=== PATIENT | female | born 1975 | race Caucasian/White ===

== ENCOUNTER 2020-11-28 13:36 | Outpatient (CLI) | payer OTHER, SELFPAY ==
[2020-11-28 13:55] LABS: Hemoglobin A1C 6.5 % (<5.7)
== END 2020-11-28 13:37 | disposition home or self-care (01) ==
LOC: CHSLAB 13:38
PROVIDERS: PCP Family Medicine; Visit Provider Family Medicine
DX: R73.09 Other abnormal glucose (principal)
CPT/HCPCS: 36415; 83036

== ENCOUNTER 2021-08-03 11:32 | Outpatient (NON) | payer OTHER, SELFPAY ==
[2021-08-03 11:51] LABS: Appearance Urine Clear (Clear); Bilirubin Urine Negative (Negative); Blood Urine 2+ (Negative); Glucose Urine UA 1+ (Negative); Ketones Urine Trace (Negative); Leukocyte Esterase Ur 2+ (Negative); Nitrate Urine Positive (Negative); Protein Urine 2+ (Negative); Specific Grav Ur 1.025 (1.010-1.020)
[2021-08-03 12:02] LABS: Add Urine Microscopic? YES; Color Urine Orange (Yellow)
[2021-08-03 12:03] LABS: Squamous Epithelial Cell Urine Few /hpf (Few); WBC Urine 16-20 /hpf (0-3)
[2021-08-03 12:04] LABS: Bacteria Urine 1+ /hpf
== END 2021-08-03 11:33 | disposition home or self-care (01) ==
LOC: CHSLAB 11:34
PROVIDERS: Visit Provider Nurse Practitioner Family
DX: N39.0 Urinary tract infection, site not specified (principal)
CPT/HCPCS: 81001; 87086; 87186

== ENCOUNTER 2021-09-30 11:03 | Outpatient (CLI) | payer OTHER, SELFPAY ==
--- NOTE | ~2021-09-30 | XR_ITS ---
EXAMINATION: XR chest 2V 09/30/2021 11:27 INDICATION: Wheezing and cough for 3 days PROCEDURE: 2 view chest COMPARISON: 12/04/2014 FINDINGS: The lungs are clear. The cardiomediastinal silhouette is within normal limits. There are no pleural effusions. There is no pneumothorax suspected. IMPRESSION: 1: NO ACUTE CARDIOPULMONARY DISEASE. Reviewed, dictated and finalized at location A. H EDGE SINGER
== END 2021-09-30 11:04 | disposition home or self-care (01) ==
LOC: CHSIMG 11:05
PROVIDERS: PCP Family Medicine; Visit Provider Nurse Practitioner Family
DX: R06.2 Wheezing (principal)
CPT/HCPCS: 71046

== ENCOUNTER 2022-03-17 14:44 | Outpatient (CLI) | payer OTHER, SELFPAY ==
[2022-03-17 15:32] LABS: Alanine Aminotransferase 39 U/L (14-59); Albumin Level 3.9 g/dL (3.4-5.0); Alkaline Phosphatase 103 U/L (46-116); Anion Gap 6 mmol/L (8-16); Aspartate Amino Transferase 14 U/L (15-37); Bilirubin,Total 0.5 mg/dL (0.00-1.00); Blood Urea Nitrogen 10 mg/dL (7-18); Calcium 8.9 mg/dL (8.5-10.1); Carbon Dioxide 30 mmol/L (21-32); Chloride 100 mmol/L (98-108); Cholesterol 199 mg/dL (0-200); Creatinine Urine 182.89 mg/dL (40-278); Estimated Glomerular Filt Rate > 60; Glucose 108 mg/dL (70-99); HDL Direct 65 mg/dL (40-60); LDL Cholesterol Calculated 109 mg/dL (<130); MALB Creatinine Ratio 10.8 mg/g (0-30); Microalbumin Urine Random 19.9 mg/L; Osmolality Calculated 282 mOsm/kg (285-295); Potassium 3.5 mmol/L (3.5-5.1); Sodium 136 mmol/L (136-145); Total Protein 6.9 g/dL (6.4-8.2); Triglycerides 126 mg/dL (0-150)
[2022-03-17 15:40] LABS: Hemoglobin A1C 6.4 % (<5.7)
== END 2022-03-17 14:45 | disposition home or self-care (01) ==
LOC: CHSLAB 14:47
PROVIDERS: PCP Family Medicine; Visit Provider Family Medicine
DX: E11.9 Type 2 diabetes mellitus without complications (principal)
CPT/HCPCS: 36415; 80053; 80061; 82043; 83036

== ENCOUNTER 2022-05-14 13:36 | Outpatient (CLI) | payer OTHER, SELFPAY ==
[2022-05-14 13:48] LABS: Add Urine Microscopic? YES; Appearance Urine Cloudy (Clear); Bilirubin Urine Negative (Negative); Blood Urine 2+ (Negative); Color Urine Light Yellow (Yellow); Glucose Urine UA Negative (Negative); Ketones Urine Negative (Negative); Leukocyte Esterase Ur 3+ (Negative); Nitrate Urine Negative (Negative); Protein Urine Trace (Negative); Specific Grav Ur 1.015 (1.010-1.020); Urobilinogen Urine 0.2 mg/dL (0.2-1.0); pH Urine 7.5 (5.0-8.0)
[2022-05-14 13:52] LABS: Bacteria Urine Trace /hpf; Squamous Epithelial Cell Urine Few /hpf (Few); WBC Urine >75 /hpf (0-3)
== END 2022-05-14 13:37 | disposition home or self-care (01) ==
LOC: CHSLAB 13:38
PROVIDERS: PCP Family Medicine; Visit Provider Nurse Practitioner Family
DX: N39.0 Urinary tract infection, site not specified (principal)
CPT/HCPCS: 81001; 87086; 87088

== ENCOUNTER 2022-10-01 14:53 | Outpatient (CLI) | payer OTHER, SELFPAY ==
--- NOTE | ~2022-10-01 | XR_ITS ---
EXAMINATION: XR chest 2V DATE: 10/01/2022 15:22 INDICATION: Wheezing, shortness of breath and cough TECHNIQUE: Frontal and lateral views of the chest are obtained COMPARISON: None available FINDINGS: The lungs are free of acute opacities. No pleural effusion or pneumothorax. The cardiomedia stinal silhouette is normal. There is moderate thoracic spondylosis. IMPRESSION: 1. No acute cardiopulmonary abnormality. Reviewed, dictated and finalized at location A. OR SYSTEMS ENGINEER
[2022-10-01 15:07] LABS: Hematocrit 43.2 % (35.0-49.0); Hemoglobin 14.8 g/dL (12.0-15.0); Mean Corpuscular HGB Conc 34.3 g/dL (32.0-36.0); Mean Corpuscular Volume 90.6 fL (78.0-102.0); Mean Platelet Volume 10.4 fl (9.2-11.8); Platelet Count Result 261 K/mm3 (150-420); Red Blood Count 4.77 M/mm3 (4.20-5.40); Red Cell Distribution Width 11.9 % (11.6-14.4); White Blood Count 7.8 K/mm3 (4.8-10.8)
[2022-10-01 15:31] LABS: Alanine Aminotransferase 53 U/L (14-59); Alkaline Phosphatase 99 U/L (46-116); Anion Gap 9 mmol/L (8-16); Aspartate Amino Transferase 21 U/L (15-37); Bilirubin,Total 0.5 mg/dL (0.00-1.00); Blood Urea Nitrogen 9 mg/dL (7-18); CRP 1.7 mg/dL (0.0-0.9); Calcium 9.1 mg/dL (8.5-10.1); Carbon Dioxide 32 mmol/L (21-32); Chloride 98 mmol/L (98-108); Estimated Glomerular Filt Rate > 60; Glucose 185 mg/dL (70-99); Osmolality Calculated 291 mOsm/kg (285-295); Potassium 3.3 mmol/L (3.5-5.1); Sodium 139 mmol/L (136-145); Total Protein 7.6 g/dL (6.4-8.2)
[2022-10-01 16:18] LABS: Band Neutrophils Percent 0 % (0-6); Basophils Percent Manual 0 % (0-1); Eosinophils Absolute Manual 1.17 K/mm3 (0.02-0.5); Eosinophils Percent Manual 15 % (1-6); Lymphocytes Absolute Manual 1.56 K/mm3 (1.1-4.5); Lymphocytes Percent Manual 20 % (18-44); Monocytes Absolute Manual 0.46 K/mm3 (0.1-0.90); Monocytes Percent Manual 6 % (3-9); Neutrophils Percent Manual 59 % (46-73); Platelet Estimate Adequate (Adequate); Total Cells Counted 100
== END 2022-10-01 14:54 | disposition home or self-care (01) ==
LOC: CHSLAB 14:55
PROVIDERS: PCP Family Medicine; Visit Provider Nurse Practitioner Family
DX: U07.1 COVID-19 (principal); R06.2 Wheezing
CPT/HCPCS: 36415; 71046; 80053; 85025; 86140

== ENCOUNTER 2022-11-30 12:17 | Outpatient (CLI) | payer OTHER, SELFPAY ==
--- NOTE | 2022-11-30 17:38 | WPDPFTINT ---
PFT Procedure Performed PFT Procedure Performed Spirometry with Pre/Post Bronchodilator Plethysmography (Lung Vol) Diffusing Cap (DLCO) Flow Vol Loop PFT Interpretation DOS: 11/30/2022 REQUESTING: Dr Broderick REASON FOR TESTING: Wheezing PULMONARY FUNCTION TESTS Results are reliable and reproducible. Spirometry: The pre-bronchodilator FEV1 is 2.27 L, 79% predicted, normal. The pre-bronchodilator FVC is 3.17 L, 90% predicted. The FEV1/FVC ratio is 72%, normal. PLG86-00% is 1.63 L, 50% predicted. After bronchodilator, there is a 20% increase in the FEV1 which becomes 2.73 L, increase of 460 ml. There is a 30% increase in the FVC, increase of 350 ml. There is no increase in the [id number]%. Lung volumes: The total lung capacity is 6.07 L, 105% predicted. normal. The residual volume is 2.66 L, 129% predicted, mild air trapping. RV/TLC% is 44%, increased consistent with air trapping. Raw is 310%, increased. Diffusion: DLCO is 28.6, 96% predicted. DLCO/VA is 4.93, 122%, normal. Flow volume loop: There is mild coving of the expiratory limb which is consistent with obstruction. IMPRESSION: There is a mild obstructive ventilatory impairment with good response to bronchodilator, mild air trapping and normal diffusion. This pattern can be seen in asthma. The exhaled nitric oxide is 138 parts per billion, significantly elevated and consistent with severe increase in airway inflammation. Elevated exhaled nitric oxide levels are seen in asthma. Clinical correlation is recommended. Yamile Lechuga MD
== END 2022-11-30 12:18 | disposition home or self-care (01) ==
LOC: CHSCARD 12:18
PROVIDERS: PCP Family Medicine; Visit Provider Family Medicine
DX: R06.2 Wheezing (principal); R94.2 Abnormal results of pulmonary function studies
CPT/HCPCS: 94060; 94726; 94729

== ENCOUNTER 2023-01-05 08:56 | Outpatient (CLI) | payer OTHER, SELFPAY ==
--- NOTE | 2023-01-16 22:10 | WPDHOMESLEEP ---
Sleep Study - Home Unattended Date of Study: 01/05/23 Ordering Provider: Mitul Brantley APRN Interpreting Provider: Jolynn Tellez, DO Home Sleep Study Type: Apnea Link Air Height: 1.73 m Weight: 115.666 kg Body Mass Index: 38.7 Neck Circumference (inches): 18 [place]: 9 Reason for Sleep Study Daytime hypersomnia Sleep History The patient is a 48-year-old female with anxiety, depression, GERD, asthma, hypertension, overactive bladder, type 2 diabetes, ADHD, PTSD, history of tobacco use and current marijuana use that had a sleep study ordered by her primary care for evaluation of sleep apnea. The patient rarely awakens from sleep short of breath. She frequently awakens at night with heartburn, belching or cough. She constantly snores loudly enough that others complain. He constantly has trouble sleeping when she has a cold. He rarely wakes up gasping for air throughout the night. She constantly has breathing problems at night observed by herself or others. She occasionally sweats excessively at night. She denies having heart palpitations or irregular heartbeats during the night. She constantly falls asleep during the day but never while driving. She denies sleep paralysis, cataplexy and hypnagogic / hypnopompic hallucinations. She frequently has trouble at school or work due to sleepiness. He denies feeling afraid of going to sleep. She rarely has nightmares. She occasionally remembers her dreams. She constantly has thoughts racing through her mind. She occasionally feels sad or depressed she constantly has anxiety. She frequently has muscular tension. She frequently notices parts of her body jerk. She constantly kicks during the night. She constantly has crawling and aching feelings in her legs and constantly has leg pain during the night. She rarely grinds her teeth during sleep and rarely awakens with morning jaw pain. She is frequently bothered by pain during the day but rarely awakened by pain during the night. She constantly wakes up feeling stiff in the morning. She constantly wakes up with sore and achy muscles. She constantly wakes up with pain in the neck, spine or other joints. The patient goes to bed at midnight on weekdays and at 1:00 a.m. on the weekends. It takes her 20-30 minutes to fall asleep. She wakes up 3-4 times throughout the night to change positions or urinate. She is able to fall back asleep within 10-15 minutes. She wakes up at 7:00 a.m. on weekdays and 8:00 a.m. on the weekends. She typically gets 6 hours of sleep per night she will stay in bed for 15-20 minutes after waking up in the morning. She currently lives alone. She does not consume any caffeinated beverages within 2 hours of bedtime. She does not engage in physical exercise before bedtime. She will watch television before falling asleep. She will take naps in the afternoon or the evening but they are not refreshing. She currently vapes. She will consume caffeinated beverages throughout the day. She denies consuming alcoholic beverages. He currently uses marijuana. [facility] Past Medical History Medical History Depression JUANITA (generalized anxiety disorder) HTN (hypertension) Nicotine dependence, cigarettes, uncomplicated Surgical History Surgical History Hx of tonsillectomy Age 3 Family History Family History Mother Depression Family history of bipolar disorder Family history of coronary artery disease Family history of type 2 diabetes mellitus Social History Social History Smoking status: Former smoker Alcohol intake: never Substance use: current Substance use type: marijuana Living arrangements: alone Medications Home Medications Medication Instructions Recorded Con
[2023-01-16 22:13] VITALS: BMI 38.7
== END 2023-01-06 10:40 | disposition home or self-care (01) ==
LOC: ANHCSM 08:57
PROVIDERS: PCP Family Medicine; Visit Provider Nurse Practitioner Family
DX: G47.30 Sleep apnea, unspecified (principal); G47.33 Obstructive sleep apnea (adult) (pediatric)
CPT/HCPCS: 95806

== ENCOUNTER 2023-05-03 14:51 | Outpatient (CLI) | payer OTHER, SELFPAY ==
[2023-05-03 15:54] LABS: Creatinine Urine 130.52 mg/dL (40-278); MALB Creatinine Ratio 9.9 mg/g (0-30); Microalbumin Urine Random < 13.0 mg/L
[2023-05-03 16:06] LABS: Hemoglobin A1C 6.8 % (<5.7)
[2023-05-03 16:11] LABS: Alanine Aminotransferase 54 U/L (14-59); Albumin Level 4.1 g/dL (3.4-5.0); Alkaline Phosphatase 88 U/L (46-116); Anion Gap 5 mmol/L (8-16); Aspartate Amino Transferase 22 U/L (15-37); Bilirubin,Total 0.4 mg/dL (0.00-1.00); Blood Urea Nitrogen 10 mg/dL (7-18); Calcium 8.8 mg/dL (8.5-10.1); Carbon Dioxide 33 mmol/L (21-32); Chloride 102 mmol/L (98-108); Cholesterol 210 mg/dL (0-200); Estimated Glomerular Filt Rate > 60; Ferritin 45 ng/mL (8-252); Folic Acid 15.1 ng/mL (8.6->20); Glucose 134 mg/dL (70-99); HDL Direct 64 mg/dL (40-60); LDL Cholesterol Calculated 124 mg/dL (<130); Osmolality Calculated 291 mOsm/kg (285-295); Potassium 3.7 mmol/L (3.5-5.1); Sodium 140 mmol/L (136-145); Total Protein 6.8 g/dL (6.4-8.2); Triglycerides 109 mg/dL (0-150); Vitamin B12 465 pg/mL (193-986)
[2023-05-03 16:12] LABS: Thyroid Stimulating Hormone Reflex 0.87 u/IU/mL (0.36-3.74)
== END 2023-05-03 14:52 | disposition home or self-care (01) ==
LOC: CHSLAB 14:53
PROVIDERS: PCP Family Medicine; Visit Provider Family Medicine
DX: E53.8 Deficiency of other specified B group vitamins (principal); E11.9 Type 2 diabetes mellitus without complications
CPT/HCPCS: 36415; 80053; 80061; 82043; 82607; 82728; 82746; 83036; 84443

== ENCOUNTER 2023-11-08 10:00 | Outpatient (CLI) | payer BC, SELFPAY ==
[2023-11-08 10:21] LABS: Hematocrit 38.2 % (35.0-49.0); Hemoglobin 12.7 g/dL (12.0-15.0); Mean Corpuscular HGB Conc 33.2 g/dL (32.0-36.0); Mean Corpuscular Hemoglobin 31.4 pg (27.0-31.0); Mean Corpuscular Volume 94.3 fL (78.0-102.0); Mean Platelet Volume 9.9 fl (9.2-11.8); Platelet Count Result 226 K/mm3 (150-420); Red Blood Count 4.05 M/mm3 (4.20-5.40); Red Cell Distribution Width 12.1 % (11.6-14.4); White Blood Count 7.4 K/mm3 (4.8-10.8)
[2023-11-08 10:30] LABS: Hemoglobin A1C 6.5 % (<5.7)
[2023-11-08 11:13] LABS: Alanine Aminotransferase 47 U/L (14-59); Albumin Level 3.7 g/dL (3.4-5.0); Alkaline Phosphatase 83 U/L (46-116); Anion Gap 11 mmol/L (8-16); Aspartate Amino Transferase 28 U/L (15-37); Bilirubin,Total 0.4 mg/dL (0.00-1.00); Blood Urea Nitrogen 6 mg/dL (7-18); Calcium 8.7 mg/dL (8.5-10.1); Carbon Dioxide 28 mmol/L (21-32); Chloride 101 mmol/L (98-108); Cholesterol 211 mg/dL (0-200); Estimated Glomerular Filt Rate > 60; Ferritin 47 ng/mL (8-252); Glucose 136 mg/dL (70-99); HDL Direct 86 mg/dL (40-60); Iron 36 ug/dL (50-170); LDL Cholesterol Calculated 110 mg/dL (<130); NT Pro B Type Natriuretic Pept 94 pg/mL (0-125); Osmolality Calculated 289 mOsm/kg (285-295); Percent Iron Saturation 9 % (12-57); Potassium 3.9 mmol/L (3.5-5.1); Sodium 140 mmol/L (136-145); Total Protein 6.7 g/dL (6.4-8.2); Triglycerides 73 mg/dL (0-150)
== END 2023-11-08 10:01 | disposition home or self-care (01) ==
LOC: CHSLAB 10:03
PROVIDERS: PCP Family Medicine; Visit Provider Nurse Practitioner Family
DX: Z00.00 Encounter for general adult medical examination without abnormal findings (principal); G25.81 Restless legs syndrome; R06.02 Shortness of breath
CPT/HCPCS: 36415; 80053; 80061; 82728; 83036; 83540; 83550; 83880; 85027

== ENCOUNTER 2024-01-10 19:15 | Emergency (ER) | payer BC, SELFPAY ==
[2024-01-10] VITALS (18 sets, daily range): BP systolic 133–155; BP diastolic 63–105; PULSE 86–123; RESP 17–30; TEMP 36.7; O2SAT 86–98
--- NOTE | ~2024-01-10 | XR_ITS ---
EXAMINATION: XR chest 1V portable INDICATION: Shortness of breath TECHNIQUE: Portable AP chest at 1943 hours COMPARISON: 10/01/2022 FINDINGS: The lungs are free of acute opacities. No pleural effusion or pneumothorax. The cardiomedia stinal silhouette is normal. IMPRESSION: 1. No acute cardiopulmonary abnormality. Reviewed, dictated and finalized at location F.
[2024-01-10] MEDS: methylPREDNISolone SOD SUCC 125 MG VIAL IM (19:24)
[2024-01-10] MEDS: IPRATROPIUM 0.5 MG/ALBUTEROL SULFATE 2.5 MG AMPUL.NEB 3 ML INHALATION ×2 (19:24→19:48)
--- NOTE | 2024-01-10 19:28 | ED.ASTHMA ---
HPI - Asthma General Chief Complaint: Asthma Stated Complaint: Asthma Attack Time Seen by Provider: 01/10/24 19:17 Source: patient Mode of arrival: ambulatory Limitations: no limitations History of Present Illness HPI Narrative: Patient is a 48-year-old female with shortness of breath and asthma exacerbation. complaint: asthma attack Onset (ago): day(s) (3) Severity: severe Context: recent URI Associated symptoms: productive cough Asthma History: childhood onset Treatments Prior to Arrival: inhaled bronchodilator Related Data Current Asthma Therapy: inhaled bronchodilator Home Medications Medication Instructions Recorded Confirmed alprazolam 0.5 mg tablet 0.25 mg PO QID 02/18/20 01/10/24 prazosin 1 mg capsule 1 mg PO DAILY 02/18/20 01/10/24 brexpiprazole 1 mg tablet (Rexulti) 1 mg PO DAILY 11/28/20 01/10/24 dextroamphetamine-amphetamine 5 mg 20 mg PO BID 11/28/20 01/10/24 tablet (Adderall) sertraline 25 mg tablet (Zoloft) 100 mg PO DAILY 11/28/20 01/10/24 Allergies Allergy/AdvReac Type Severity Reaction Status Date / Time No Known Allergies Allergy Mild Verified 01/10/24 21:19 Review of Systems Review of Systems: All systems reviewed & are unremarkable except as noted in HPI and below Constitutional: Constitutional: Reports no additional constitutional complaints Eyes: Eyes: Reports no additional eye complaints ENT: Reports system reviewed and no additional complaints, except as documented Cardiovascular: Cardiovascular: Reports no additional cardiovascular complaints Respiratory: Respiratory: Reports no additional respiratory complaints Gastrointestinal: Gastrointestinal: Reports no additional gastrointestinal complaints Genitourinary: Genitourinary: Reports no additional female genitourinary complaints Musculoskeletal: Musculoskeletal: Reports no additional musculoskeletal complaints Integumentary/Breasts: Skin/Breast: Reports system reviewed and no additional complaints, except as docu Neurologic: Reports system reviewed and no additional complaints, except as documented Psychiatric: Psychiatric: Reports no additional psychiatric complaints Endocrine: Endocrine: Reports no additional endocrine complaints Hematologic/Lymphatic: Hematologic/Lymphatic: Reports no additional hematologic/lymphatic complaints Allergic/Immunologic: Allergic/Immunologic: Reports no additional allergic/immunologic complaints PMFSH Past Medical History Medical History Depression JUANITA (generalized anxiety disorder) HTN (hypertension) Nicotine dependence, cigarettes, uncomplicated Surgical History Surgical History Hx of tonsillectomy Age 3 Family History Family History Mother Depression Family history of bipolar disorder Family history of coronary artery disease Family history of type 2 diabetes mellitus Social History Social History Smoking packs per day: 1 Smoking cigarettes per day: 20.0 Years smoked: 29 Smoking pack-years: 29.00 Smoking status: Current every day smoker Tobacco type: e-cigarettes/vaping Alcohol intake: never Substance use: current Substance use type: marijuana Living arrangements: alone Exam Const: General: ill appearing Nutritional Appearance: well nourished Orientation/consciousness: patient oriented x3 HENMT: Head: normal to inspection Ears: external ears normal Face/Nose/Sinus: Normal external nose present Eyes: Conjunctivae: conjunctivae normal Pupils: Equal, round and reactive pupils present EOM: EOMs intact bilaterally Neck: Neck: normal visual inspection Chest: Chest palpation & inspection: normal inspection of the chest Resp: Effort & Inspection: abnormal respiratory effort, labored, no retractions, tachypneic and
[2024-01-10] MEDS: MAGNESIUM SULF 2 GM/WATER 50ML 2 GM/50 ML BAG IVPB (19:38)
[2024-01-10 19:47] LABS: Basophils Absolute Auto 0.06 K/mm3 (0.00-0.10); Basophils Percent Auto 0.5 % (0.0-1.0); Eosinophils Absolute Auto 4.78 K/mm3 (0.02-0.50); Eosinophils Percent Auto 36.1 % (1.0-6.0); Hematocrit 41.1 % (35.0-49.0); Immature Granulocyte Absolute 0.03 K/mm3 (0.00-0.00); Immature Granulocyte Percent A 0.2 % (0.0-0.0); Lymphocytes Absolute Auto 2.05 K/mm3 (1.10-4.50); Lymphocytes Percent Auto 15.5 % (18.0-42.0); Mean Corpuscular HGB Conc 34.1 g/dL (32-36); Mean Corpuscular Hemoglobin 30.9 pg (27.0-31.0); Mean Corpuscular Volume 90.7 fL (78.0-102.0); Mean Platelet Volume 10.5 fl (9.2-11.8); Monocytes Absolute Auto 0.58 K/mm3 (0.10-0.90); Monocytes Percent Auto 4.4 % (2.0-11.0); Neutrophils Absolute Auto 5.74 K/mm3 (1.70-7.20); Neutrophils Percent Auto 43.3 % (50.0-70.0); Platelet Count Result 251 K/mm3 (150-420); Red Blood Count 4.53 M/mm3 (4.20-5.40); White Blood Count 13.2 K/mm3 (4.8-10.8)
[2024-01-10 20:02] LABS: Alanine Aminotransferase 51 U/L (14-59); Albumin Level 3.8 g/dL (3.4-5.0); Alkaline Phosphatase 89 U/L (46-116); Anion Gap 10 mmol/L (4-12); Aspartate Amino Transferase 25 U/L (15-37); Bilirubin,Total 0.5 mg/dL (0.00-1.00); Blood Urea Nitrogen 9 mg/dL (7-18); Calcium 9.4 mg/dL (8.5-10.1); Carbon Dioxide 31 mmol/L (21-32); Chloride 101 mmol/L (98-108); Estimated CRCL calculation 101 ml/min; Estimated Glomerular Filt Rate > 60; Glucose 202 mg/dL (70-99); Osmolality Calculated 298 mOsm/kg (285-295); Potassium 3.3 mmol/L (3.5-5.1); Sodium 142 mmol/L (136-145); Total Protein 6.8 g/dL (6.4-8.2)
[2024-01-10 20:05] LABS: Lactic Acid Reflex 2.7 mmol/L (0.4-2.0)
[2024-01-10] MEDS: POTASSIUM CHLORIDE 20 MEQ ER TABLET PO (20:20)
[2024-01-10] MEDS: levoFLOXacin 500 MG/D5W 100 ML 500 MG/100 ML BAG 100 MG IVPB (20:21)
[2024-01-10] MEDS: guaiFENesin/CODEINE 100/10 MG 5 ML SYRUP 10 ML PO (21:22)
[2024-01-10] MEDS: ALBUTEROL SULFATE NEB 1.25 MG/3 ML INH INHALATION (21:23)
--- NOTE | 2024-01-10 22:21 | PC.NURSE ---
Pt continues to have audible wheezes and shortness of breath after first two duonebs and during administration of continuous breathing tx
[2024-01-10 22:45] LABS: Reflex Lactic Acid Yes or No Add Lactic
--- NOTE | 2024-01-10 23:08 | PC.NURSE ---
Pt O2 sat 97% on room air after ambulating to and from the restroom. Pt states that she is feeling much improved. MD salazar
[2024-01-10 23:21] LABS: Lactic Acid 1.5 mmol/L (0.4-2.0)
== END 2024-01-10 23:44 | disposition home or self-care (01) ==
PROVIDERS: Emergency Provider Emergency Medicine; PCP Family Medicine
DX: J45.901 Unspecified asthma with (acute) exacerbation (principal); I10 Essential (primary) hypertension; F41.1 Generalized anxiety disorder; F32.A Depression, unspecified; F17.290 Nicotine dependence, other tobacco product, uncomplicated; F12.90 Cannabis use, unspecified, uncomplicated; Z79.51 Long term (current) use of inhaled steroids
CPT/HCPCS: 36415; 71045; 80053; 83605; 85025; 96365; 96367; 96372; 99284; A9270; J1956; J2930; J3475

== ENCOUNTER 2024-01-12 10:35 | Observation (INO) | payer BC, SELFPAY ==
[2024-01-12] VITALS (67 sets, daily range): BP systolic 102–143; BP diastolic 60–103; PULSE 64–107; RESP 16–28; TEMP 36.5–36.9; O2SAT 88–100; BMI 40.4
--- NOTE | ~2024-01-12 | XR_ITS ---
EXAMINATION: XR chest 1V portable INDICATION: Shortness of breath TECHNIQUE: Portable AP chest at 1103 hours COMPARISON: 01/10/2024 FINDINGS: The lungs are free of acute opacities. No pleural effusion or pneumothorax. The cardiomedia stinal silhouette is normal. IMPRESSION: 1. No acute cardiopulmonary abnormality. Reviewed, dictated and finalized at location F.
--- NOTE | ~2024-01-12 | XR_ITS ---
EXAMINATION: XR chest 2V DATE: 01/13/2024 06:44 INDICATION: Asthma exacerbation TECHNIQUE: Frontal and lateral views of the chest are obtained COMPARISON: 01/12/2024 FINDINGS: The lungs are free of acute opacities. No pleural effusion or pneumothorax. The cardiomedia stinal silhouette is normal. There is mild thoracic spondylosis. IMPRESSION: 1. No acute cardiopulmonary abnormality. Reviewed, dictated and finalized at location A.
--- NOTE | 2024-01-12 10:46 | ECG_ITS ---
Measurements Intervals [place] Rate: 96 P: 58 [place]: 148 QRS: 69 QRSD: 86 T: 33 QT: 339 QTc: 430 Interpretive Statements SINUS RHYTHM MINIMAL Q WAVES- INFERIOR LEADS BORDERLINE ECG NO PREVIOUS ECG AVAILABLE FOR COMPARISON Electronically Signed On 01-12-2024 11:25:36 CDT by Adithya Mcguire D.O.
[2024-01-12] MEDS: IPRATROPIUM 0.5 MG/ALBUTEROL SULFATE 2.5 MG AMPUL.NEB 3 ML INHALATION ×4 (10:58→19:59)
[2024-01-12] MEDS: MAGNESIUM SULF 2 GM/WATER 50ML 2 GM/50 ML BAG IVPB (11:04)
[2024-01-12] MEDS: methylPREDNISolone SOD SUCC 125 MG VIAL IV PUSH (11:04)
[2024-01-12] MEDS: ALPRAZolam (*CRX) 0.5 MG TABLET PO ×2 (11:19→12:23)
--- NOTE | 2024-01-12 11:21 | ED.SOB ---
HPI - SOB/Dyspnea General Chief Complaint: Shortness of Breath/Dyspnea Stated Complaint: SOB; anxiety Time Seen by Provider: 01/12/24 10:41 Source: patient and family Mode of arrival: wheelchair Limitations: no limitations History of Present Illness HPI Narrative: this is a 48-year-old female with a history of COPD/ asthma presents from her PCP's office with some shortness of breath cough congestion and some initially O2 sats around 89%. Patient denies having any chest pain no fever chills no nausea vomiting no diaphoresis. Patient was seen 2 days ago for upper respiratory tract infection and treated with antibiotics. MD elicited complaint: shortness of breath Onset (ago): day(s) Timing: constant Severity: moderate Related Data Home Medications Medication Instructions Recorded Confirmed alprazolam 0.5 mg tablet 0.25 mg PO QID 02/18/20 01/12/24 prazosin 1 mg capsule 1 mg PO DAILY 02/18/20 01/12/24 brexpiprazole 1 mg tablet (Rexulti) 1 mg PO DAILY 11/28/20 01/12/24 dextroamphetamine-amphetamine 5 mg 20 mg PO BID 11/28/20 01/12/24 tablet (Adderall) sertraline 25 mg tablet (Zoloft) 100 mg PO DAILY 11/28/20 01/12/24 Allergies Allergy/AdvReac Type Severity Reaction Status Date / Time No Known Allergies Allergy Mild Verified 01/12/24 10:45 Review of Systems Review of Systems: All systems reviewed & are unremarkable except as noted in HPI and below PMFSH Past Medical History Medical History Depression JUANITA (generalized anxiety disorder) HTN (hypertension) Nicotine dependence, cigarettes, uncomplicated Surgical History Surgical History Hx of tonsillectomy Age 3 Family History Family History Mother Depression Family history of bipolar disorder Family history of coronary artery disease Family history of type 2 diabetes mellitus Social History Social History Smoking packs per day: 1 Smoking cigarettes per day: 20.0 Years smoked: 29 Smoking pack-years: 29.00 Smoking status: Current every day smoker Tobacco type: e-cigarettes/vaping Alcohol intake: never Substance use: current Substance use type: marijuana Living arrangements: alone Exam Const: General: no acute distress Nutritional Appearance: obese Orientation/consciousness: patient oriented x3 Limitations: no limitations HENMT: Head: normal to inspection Resp: Effort & Inspection: normal respiratory effort Auscultation: wheezes Cardio: Rate: regular rate Rhythm: regular rhythm GI: GI Palp: Yes Soft to palpation Auscultation: normal bowel sounds Back/Spine/Pelvis: Back: no CVA tenderness Skin: General skin exam: normal color Rashes: no rashes Neuro: General: patient oriented x3 Cranial nerves: Yes Nystagmus not present Extrem: General: normal to inspection, no clubbing, cyanosis or edema and no pedal edema Psych: Affect: Anxious affect present Course Course Emergency Course: Patient with shortness breath received DuoNebs and Solu-Medrol along with 2g IV magnesium. Patient after reassessment O2 sats 100% on room air resting comfortably does have some coughing but lungs have improved it and wheezing has improved as well. EKG shows normal sinus rhythm, but troponins are elevated and will repeat 3hour troponin. troponins have steadily decreased from 160 down to 130 down to 100 patient requiring nebulizer treatment still have some audible wheezing and will admit to [facility] hospital Vital Signs Vital signs: Vital Signs Temperature 36.8 C 01/12/24 10:39 Pulse Rate 105 H 01/12/24 10:39 Respiratory Rate 28 H 01/12/24 10:39 Blood Pressure 143/103 H 01/12/24 10:39 Pulse Oximetry 89 L 01/12/24 10:39 Oxygen Delivery Room Air 01/12/24 10:39 Temperature 36.9 C 01/12/24 16:
[2024-01-12 11:33] LABS: Basophils Absolute Auto 0.03 K/mm3 (0.00-0.10); Basophils Percent Auto 0.2 % (0.0-1.0); Eosinophils Absolute Auto 0.11 K/mm3 (0.02-0.50); Eosinophils Percent Auto 0.7 % (1.0-6.0); Hematocrit 43.2 % (35.0-49.0); Hemoglobin 14.2 g/dL (12.0-15.0); Immature Granulocyte Percent A 0.6 % (0.0-0.0); Lymphocytes Absolute Auto 2.65 K/mm3 (1.10-4.50); Lymphocytes Percent Auto 15.9 % (18.0-42.0); Mean Corpuscular HGB Conc 32.9 g/dL (32-36); Mean Corpuscular Hemoglobin 30.3 pg (27.0-31.0); Mean Corpuscular Volume 92.1 fL (78.0-102.0); Mean Platelet Volume 10.8 fl (9.2-11.8); Monocytes Absolute Auto 0.78 K/mm3 (0.10-0.90); Monocytes Percent Auto 4.7 % (2.0-11.0); Neutrophils Absolute Auto 12.97 K/mm3 (1.70-7.20); Neutrophils Percent Auto 77.9 % (50.0-70.0); Platelet Count Result 283 K/mm3 (150-420); Red Blood Count 4.69 M/mm3 (4.20-5.40); Red Cell Distribution Width 12.4 % (11.6-14.4); White Blood Count 16.6 K/mm3 (4.8-10.8)
[2024-01-12 11:54] LABS: D Dimer 0.39 mg/L (0.19-0.50); INR 0.9; Partial Thromboplastin Time 25.1 Sec (23.9-30.70); Prothrombin Time 10.3 Seconds (9.50-12.1)
[2024-01-12 12:01] LABS: Lactic Acid Reflex 6.8 mmol/L (0.4-2.0)
[2024-01-12 12:06] LABS: Base Excess ABG 0.6 mmol/L (0-2); HCO3 ABG 21.6 mmol/L (23-29); Modified Allen's Test Pass; Oxygen Saturation ABG 96.1 % (95-97); Oxyhemoglobin 95.6 % (94-100); PCO2 ABG 25.5 mmHg (35-45); PO2 ABG 71.5 mmHg (80-90); Site Drawn RIGHT RADIAL; Total Hemoglobin 14.1 g/dL (12.0-18.0); pH ABG 7.55 (7.35-7.45)
[2024-01-12 12:07] LABS: Device ROOM AIR
[2024-01-12 12:08] LABS: Alanine Aminotransferase 52 U/L (14-59); Albumin Level 4.1 g/dL (3.4-5.0); Alkaline Phosphatase 91 U/L (46-116); Anion Gap 17 mmol/L (4-12); Aspartate Amino Transferase 26 U/L (15-37); Bilirubin,Total 0.5 mg/dL (0.00-1.00); Blood Urea Nitrogen 13 mg/dL (7-18); Calcium 9.6 mg/dL (8.5-10.1); Carbon Dioxide 24 mmol/L (21-32); Chloride 100 mmol/L (98-108); Estimated CRCL calculation 88 ml/min; Estimated Glomerular Filt Rate > 60; Glucose 160 mg/dL (70-99); Magnesium 1.6 mg/dL (1.8-2.4); NT Pro B Type Natriuretic Pept 327 pg/mL (0-125); Osmolality Calculated 295 mOsm/kg (285-295); Potassium 3.8 mmol/L (3.5-5.1); Sodium 141 mmol/L (136-145); Total Protein 7.3 g/dL (6.4-8.2)
[2024-01-12 12:12] LABS: Troponin I 166.5 ng/L (0.00-60.4)
[2024-01-12] MEDS: ASPIRIN 81 MG CHEWABLE TABLET 324 MG PO (12:23)
[2024-01-12] MEDS: POTASSIUM BICARBONATE 25 MEQ TABEF 50 MEQ PO (12:24)
[2024-01-12] MEDS: NICOTINE (*PBKC) 14 MG PATCH 1 PATCH TRANSDERM (12:38)
[2024-01-12] MEDS: SODIUM CHLORIDE 0.9% IV 1,000 ML 999 ML IV CONT (13:02)
[2024-01-12 14:30] LABS: Reflex Lactic Acid Yes or No Add Lactic
[2024-01-12 15:31] LABS: Lactic Acid 2.5 mmol/L (0.4-2.0); Troponin I 130.2 ng/L (0.00-60.4)
[2024-01-12 18:21] LABS: Troponin I 110.2 ng/L (0.00-60.4)
--- NOTE | 2024-01-12 19:10 | PC.NURSE ---
Report received, pt up ambulatory per self to BR, reports feeling some better p given breathing tx. POC discussed c pt and POC is to admit for COPD Exac. Pt agreeable to plan.VSS at this time.
--- NOTE | 2024-01-12 19:22 | PC.NURSE ---
190 report to jacob schwab.
[2024-01-12] MEDS: methylPREDNISolone SOD SUCC 125 MG VIAL 60 MG IV PUSH (19:28)
[2024-01-12] MEDS: SODIUM CHLORIDE 0.9% IV 1,000 ML 100 ML IV CONT (19:43)
[2024-01-12] MEDS: AZITHROMYCIN 500 MG/NS 250 ML 500 MG/250 ML BAG 250 MG IVPB (20:04)
--- NOTE | 2024-01-12 20:26 | PC.NURSE ---
Report given to FILIPE French. Pt to go to RM 226. VSS SR on monitor. Pt eating ice chips. No distress at this time.
[2024-01-12] MEDS: guaiFENesin/CODEINE 100/10 MG 5 ML SYRUP 10 ML PO (21:37)
--- NOTE | 2024-01-12 22:08 | PC.NURSE ---
48 year old female admitted to Room 226 via stretcher from ER. Patient alert and oriented x3. Verbalizes needs. Able to ambulate without difficulty. IV to left hand intact and patent. Dressing clean, dry, intact. IV fluids infusing without difficulty via IV pump. Slight edema to BLE. Dry, nonproductive cough observed. Wheezing and rhonchi noted to all lung barrett. Cough medication given per MD prn order. Denies resp distress or chest pressure at this time. Bowel sounds x4 quads. Patient stated her last bowel movement was 01/11/24. Denies N/V/D. Oriented to room. No c/o offered.
[2024-01-13] VITALS (10 sets, daily range): BP systolic 121–134; BP diastolic 70–87; PULSE 93–105; RESP 18–20; TEMP 36.1–36.4; O2SAT 92–100
[2024-01-13] MEDS: ALPRAZolam (*CRX) 0.25 MG TABLET PO ×3 (00:14→13:11)
[2024-01-13] MEDS: SERTRALINE HCL 50 MG TABLET 100 MG PO ×2 (00:15→08:24)
[2024-01-13] MEDS: FAMOTIDINE 20 MG TABLET PO (00:15)
--- NOTE | 2024-01-13 00:15 | PC.NURSE ---
Pt given Xanax 0.25 mg, Pepcid 20 mg, Zoloft 100 mg and Minipress 1 mg PO per pt's request.
[2024-01-13] MEDS: PRAZOSIN HCL 1 MG CAPSULE PO ×2 (00:16→08:23)
[2024-01-13] MEDS: IPRATROPIUM 0.5 MG/ALBUTEROL SULFATE 2.5 MG AMPUL.NEB 3 ML INHALATION ×3 (00:22→11:21)
--- NOTE | 2024-01-13 00:22 | PC.NURSE ---
Pt given a duoneb treatment which she tolerated well.
[2024-01-13] MEDS: SERTRALINE HCL 50 MG TABLET 100 MG (00:23)
[2024-01-13] MEDS: HOME MED (Brexpiprazole [Rexulti] 1 mg tablet) 1 EACH PO ×2 (01:02→08:18)
[2024-01-13] MEDS: methylPREDNISolone SOD SUCC 125 MG VIAL 60 MG IV PUSH ×3 (01:17→13:10)
--- NOTE | 2024-01-13 01:20 | PC.NURSE ---
Pt given Solumedrol 0120 mg IVP as ordered.
[2024-01-13] MEDS: guaiFENesin/CODEINE 100/10 MG 5 ML SYRUP 10 ML PO ×3 (01:30→11:15)
--- NOTE | 2024-01-13 01:30 | PC.NURSE ---
Pt given Guaifenesin 10 ml PO per pt request for cough.
--- NOTE | 2024-01-13 02:00 | PC.NURSE ---
Pt's daughter here to see pt.
--- NOTE | 2024-01-13 04:09 | PC.NURSE ---
Pt asleep and respirations are even and unlabored. No signs of respiratory distress noted.
[2024-01-13] MEDS: SODIUM CHLORIDE 0.9% IV 1,000 ML 100 ML IV CONT (05:15)
--- NOTE | 2024-01-13 05:29 | PC.NURSE ---
New bag of IV fluid infusing as ordered. Pt asleep and respirations remain even and unlabored.
--- NOTE | 2024-01-13 06:02 | PC.NURSE ---
Pt given guaifenesin 10 ml PO per her request for coughing.
--- NOTE | 2024-01-13 07:15 | ECG_ITS ---
Measurements Intervals [place] Rate: 94 P: 70 UT: 170 QRS: 85 QRSD: 89 T: 41 QT: 333 QTc: 418 Interpretive Statements SINUS RHYTHM WITH MARKED SINUS ARRHYTHMIA BASELINE ARTIFACT- I, III NORMAL ECG COMPARED TO ECG 01/12/2024 11:17:02 SINUS ARRHYTHMIA NOW PRESENT Electronically Signed On 01-13-2024 7:09:23 CDT by Adithya Mcguire D.O.
--- NOTE | 2024-01-13 07:26 | PHAR ---
[facility] #[id number] Amphetamine 20 mg tablets - 1 tablet bid (morning and at 1 pm) #51
--- NOTE | 2024-01-13 07:32 | PHAR ---
Rexulti 1 mg (1 tab in bottle) - no pharmacy label
--- NOTE | 2024-01-13 07:36 | PHAR ---
Airsupra 90 mcg/80 mcg sample inhaler from home
[2024-01-13 07:44] LABS: Basophils Absolute Auto 0.01 K/mm3 (0.00-0.10); Basophils Percent Auto 0.1 % (0.0-1.0); Hematocrit 38.6 % (35.0-49.0); Hemoglobin 12.4 g/dL (12.0-15.0); Immature Granulocyte Percent A 0.8 % (0.0-0.0); Lymphocytes Absolute Auto 0.89 K/mm3 (1.10-4.50); Lymphocytes Percent Auto 7.4 % (18.0-42.0); Mean Corpuscular HGB Conc 32.1 g/dL (32-36); Mean Corpuscular Hemoglobin 30.5 pg (27.0-31.0); Mean Corpuscular Volume 94.8 fL (78.0-102.0); Mean Platelet Volume 10.7 fl (9.2-11.8); Monocytes Absolute Auto 0.22 K/mm3 (0.10-0.90); Monocytes Percent Auto 1.8 % (2.0-11.0); Neutrophils Absolute Auto 10.73 K/mm3 (1.70-7.20); Neutrophils Percent Auto 89.9 % (50.0-70.0); Platelet Count Result 220 K/mm3 (150-420); Red Blood Count 4.07 M/mm3 (4.20-5.40); Red Cell Distribution Width 12.1 % (11.6-14.4)
[2024-01-13 08:06] LABS: Lactic Acid Reflex 2.8 mmol/L (0.4-2.0)
[2024-01-13 08:13] LABS: Alanine Aminotransferase 44 U/L (14-59); Albumin Level 3.5 g/dL (3.4-5.0); Alkaline Phosphatase 80 U/L (46-116); Anion Gap 8 mmol/L (4-12); Aspartate Amino Transferase 17 U/L (15-37); Bilirubin,Total 0.3 mg/dL (0.00-1.00); Blood Urea Nitrogen 13 mg/dL (7-18); Calcium 8.9 mg/dL (8.5-10.1); Carbon Dioxide 27 mmol/L (21-32); Chloride 103 mmol/L (98-108); Estimated CRCL calculation 95 ml/min; Estimated Glomerular Filt Rate > 60; Glucose 351 mg/dL (70-99); Osmolality Calculated 300 mOsm/kg (285-295); Potassium 4.5 mmol/L (3.5-5.1); Sodium 138 mmol/L (136-145); Total Protein 6.5 g/dL (6.4-8.2); Troponin I 51.2 ng/L (0.00-60.4)
[2024-01-13] MEDS: lisinopriL 10 MG TABLET 30 MG BY MOUTH (08:17)
[2024-01-13] MEDS: FERROUS SULFATE 325 MG TABLET DR PO (08:19)
[2024-01-13] MEDS: FLUTICASONE/UMECLIDIN/VILANTER 100-62.5-25 MCG ELLIPTA 1 PUFF INHALATION (08:20)
[2024-01-13] MEDS: guaiFENesin/DEXTROMETHORPHAN 5 ML UDC 10 ML PO ×2 (08:22→13:10)
[2024-01-13] MEDS: oxyBUTYnin CHLORIDE XL 5 MG TAB.ER.24 BY MOUTH (08:23)
[2024-01-13] MEDS: hydroCHLOROthiazide 25 MG TABLET BY MOUTH (08:23)
[2024-01-13 10:42] LABS: Reflex Lactic Acid Yes or No Add Lactic
[2024-01-13 11:32] LABS: Lactic Acid 2.5 mmol/L (0.4-2.0)
[2024-01-13] MEDS: NICOTINE (*PBKC) 14 MG PATCH 1 PATCH TRANSDERM (11:36)
--- NOTE | 2024-01-13 12:05 | PM.IMHP ---
H&P: HPI History of Present Illness Date/Time: 01/13/24 12:05 Chief Complaint: shortness of breath, dyspnea Narrative: This is a 48-year-old female with a significant past medical history of asthma, depression, general anxiety disorder, hypertension, nicotine dependence presents with a 10 day history shortness of breath / dyspnea that has worsened over the last 2-3 days. Patient states that she tried taking her rescue inhaler at home with no relief. States that she repeated multiple times at home with no relief. she presented to the emergency room on 01/09 with an asthma attack where she receives steroids and a nebulized treatment with improvement in her symptoms. She was sent home with prednisone, Robitussin with codeine, and Levaquin at that time. Once home for few days patient developed worsening symptoms again and presented to her primary care Dr. Maykel yu office for follow-up. She did try taking albuterol neb treatments at home and her rescue inhaler again however it did not help her symptoms. When she got to Dr. Fowler's office he noted that her oxygen saturation was 87%. She was given a breathing treatment in office however her O2 sat remained low prompting her to come to our emergency room for further evaluation. Before she left the doctor's office Dr. Maykel beltre gave her 2 Breztri inhalers and 2 Airsupra inhalers for home use. Patient did note that she has had asthma most of her life and she has not had an exacerbation like this since she was a child. She does report flare ups past during weather changes only Otherwise she was well controlled. I asked about her about her living environment and she states that she moved in with her boyfriend about 9 months ago [address] [place] [address] [place] a bit of dust in the home and there are 4 dogs that live in the home with them. She states that she was allergic to quite a few things on her allergy test when she was a child and dogs were 1 of them. She does correlate that her worsening asthma symptoms correlate with moving in to her boyfriend's home. Patient does vape and smokes marijuana on occasion. Workup in the hospital included a chest x-ray which showed no acute cardiopulmonary abnormality with a repeat chest x-ray today which was also negative. Initial labs show a white blood cell count of 16.6, blood sugar was 160, lactic acid was 6.8 with a repeat of 2.5, magnesium was 1.6, troponin x4 were 166.5< 130.2< 110.2< and 51.2. she was given 1 L normal saline, Rocephin, azithromycin, DuoNebs, and started on steroids while in the ED. On exam today she does have a pretty tight sounding cough however her lungs were clear with no wheezing. she denies any fever, chills, nausea, vomiting, diarrhea, abdominal pain, chest pain. She endorses a nonproductive cough and mild shortness of breath. She is currently on room air and feeling much better today. There is a possibility that in addition to her asthma that she might have a COPD/ emphysema component as well and should be evaluated for this on an outpatient basis with a barge hand. She would also benefit from getting another allergy test here in the near future. Review of Systems Review of Systems: alert oriented x4 All systems reviewed & are unremarkable except as noted in HPI and below Constitutional: Constitutional: Reports as per HPI and Reports no additional constitutional complaints Eyes: Eyes: Reports as per HPI and Reports no additional eye complaints ENT: Reports system reviewed and no additional complaints, except as documented and Reports as per HPI Cardiovascular: Cardiovascular: Reports as per HPI and Reports no additional cardiovascular complaints Respiratory: Respiratory: Reports as per HPI and Reports no additional respiratory complaints Gastrointestinal: Gastrointestinal: Reports as per HPI and Reports no additional gastrointestinal complaints Genitourinary: Genitourinary: Reports no additional
--- NOTE | 2024-01-13 13:31 | PM.DS ---
DS: Admitting Diagnosis Discharge Date 01/13/2024 Admitting Diagnosis acute respiratory failure with hypoxia COPD with asthma exacerbation depression generalized anxiety disorder nicotine dependence hypertension DS: Discharge Diagnosis Discharge Diagnosis (1) Acute respiratory failure with hypoxia: Code(s): J96.01 - Acute respiratory failure with hypoxia Status: Acute (2) COPD with asthma: Code(s): J44.89 - Other specified chronic obstructive pulmonary disease Status: Acute (3) Depression: Code(s): F32.9 - Major depressive disorder, single episode, unspecified Status: Chronic (4) JUANITA (generalized anxiety disorder): Code(s): F41.1 - Generalized anxiety disorder Status: Chronic (5) Nicotine dependence, cigarettes, uncomplicated: Code(s): F17.210 - Nicotine dependence, cigarettes, uncomplicated Status: Chronic (6) HTN (hypertension): Code(s): I10 - Essential (primary) hypertension Status: Chronic DS: Summary Hospital Course Reason for hospitalization: acute respiratory failure with hypoxia COPD with asthma exacerbation depression generalized anxiety disorder nicotine dependence hypertension Hospital Course: This is a 48-year-old female? with a significant past medical history of asthma, depression, general anxiety disorder, hypertension, nicotine dependence presents with a 10 day history shortness of breath / dyspnea that has worsened over the last 2-3 days.? Patient states that she tried taking her rescue inhaler at home with no relief.? States that she repeated multiple times at home with no relief. she presented to the emergency room on 01/09 with an asthma attack where she receives steroids and a nebulized treatment with improvement in her symptoms.? She was sent home? with prednisone, Robitussin with codeine, and Levaquin at that time. Once home for few days patient developed worsening symptoms again and presented to her primary care Dr. Maykel yu office for follow-up.? She did try taking albuterol neb treatments at home and her rescue inhaler again however? it did not help her symptoms.? When she got to Dr. Fowler's office he noted? that her oxygen saturation was 87%.? She was given a breathing treatment in office however her O2 sat remained low prompting her to come to our emergency room for further evaluation.? Before she left the doctor's office Dr. Maykel beltre gave her 2 Breztri inhalers and 2 Airsupra inhalers for home use.? Patient did note that she has had asthma most of her life and she has not had an exacerbation like this since she was a child. She does report flare ups past during weather changes only? Otherwise she was well controlled.? I asked about her? about her living environment and she states that she moved in with her boyfriend about 9 months ago [place] a bit of dust in the home and there are 4 dogs that live in the home with them.? She states that she was allergic to quite a few things on her allergy test when she was a child and dogs? were 1 of them.? She does correlate that her worsening asthma symptoms correlate with moving in to her boyfriend's home.? Patient does vape and smokes marijuana on occasion. Workup in the hospital included a chest x-ray which showed no acute cardiopulmonary abnormality with a repeat chest x-ray today which was also negative. ? Initial labs show a white blood cell count of 16.6, blood sugar was 160, lactic acid was 6.8 with a repeat of 2.5, magnesium? was 1.6, troponin x4 were 166.5< 130.2< 110.2< and 51.2. she was given 1 L normal saline, Rocephin, azithromycin, DuoNebs, and started on steroids while in the ED. On exam today she does have a pretty tight sounding cough however her lungs were clear with no wheezing. she denies any fever, chills, nausea, vomiting, diarrhea, abdominal pain, chest pain.? She endorses a nonproductive cough and mild shortness of breath.? She is
--- NOTE | 2024-01-13 14:15 | PC.NURSE ---
Discharge instructions reviewed as well as medications reviewed, no questions, agreeable to discharge today, no distress noted, telemtry discontinued and is up in room getting dressed, saline lock was removed wtih education given on watching for signs of infection at site.
--- NOTE | 2024-01-13 14:39 | PC.NURSE ---
discharge to home with personal items and medications from home returned, no questions voiced on dc lourdes ome
--- NOTE | 2024-01-17 08:03 | PC.NURSE ---
Discharge call back complete, doing better still has some sob with activity, taking meds and nebs as prescribed, f/u january [address] Broderick, no questions regarding dc instructions
== END 2024-01-13 14:35 | disposition home or self-care (01) ==
LOC: CHSED 19:12 → CHS2ND 20:19
PROVIDERS: Admitting Provider Internal Medicine; Emergency Provider Emergency Medicine; PCP Family Medicine; Visit Provider Internal Medicine
DX: J96.01 Acute respiratory failure with hypoxia (principal); J44.89 Other specified chronic obstructive pulmonary disease; F32.9 Major depressive disorder, single episode, unspecified; F41.1 Generalized anxiety disorder; I10 Essential (primary) hypertension; F17.210 Nicotine dependence, cigarettes, uncomplicated; Z79.51 Long term (current) use of inhaled steroids; Z79.52 Long term (current) use of systemic steroids; Z79.899 Other long term (current) drug therapy
CPT/HCPCS: 36415; 36600; 71045; 71046; 80053; 82805; 83605; 83735; 83880; 84484; 85025; 85380; 85610; 85730; 87040; 93005; 94640; 96361; 96365; 96367; 96375; 96376; 99285; A9270; G0378; J0456; J0696; J2930; J3475; J7030

== ENCOUNTER 2024-02-07 10:06 | Outpatient (CLI) | payer BC, SELFPAY ==
--- NOTE | ~2024-02-07 | XR_ITS ---
EXAMINATION: XR chest 2V 02/07/2024 10:28 INDICATION: Pain dyspnea. Chronic obstructive pulmonary disease. PROCEDURE: 2 view chest COMPARISON: Comparison to multiple prior studies sequentially, with oldest reviewed study dated 09/16. FINDINGS: The lungs are clear. The lungs are hyperinflated which is consistent with, but not diagnost ic of chronic obstructive pulmonary disease. The cardiomediastinal silhouette is within normal limit s. There are no pleural effusions. There is no pneumothorax suspected. IMPRESSION: 1: NO ACUTE CARDIOPULMONARY DISEASE. Reviewed, dictated and finalized at location B.
[2024-02-07 10:26] LABS: Hematocrit 39.4 % (35.0-49.0); Hemoglobin 12.8 g/dL (12.0-15.0); Mean Corpuscular HGB Conc 32.5 g/dL (32-36); Mean Corpuscular Hemoglobin 30.4 pg (27.0-31.0); Mean Corpuscular Volume 93.6 fL (78.0-102.0); Mean Platelet Volume 9.9 fl (9.2-11.8); Platelet Count Result 234 K/mm3 (150-420); Red Blood Count 4.21 M/mm3 (4.20-5.40); Red Cell Distribution Width 12.6 % (11.6-14.4); White Blood Count 6.4 K/mm3 (4.8-10.8)
[2024-02-07 11:07] LABS: Band Neutrophils Percent 0 % (0-6); Eosinophils Absolute Manual 0.96 K/mm3 (0.02-0.50); Eosinophils Percent Manual 15 % (1-6); Lymphocytes Absolute Manual 2.11 K/mm3 (1.1-4.5); Lymphocytes Percent Manual 33 % (18-44); Monocytes Absolute Manual 0.25 K/mm3 (0.1-0.90); Monocytes Percent Manual 4 % (3-9); Neutrophils Absolute Manual 3.07 K/mm3 (1.7-7.2); Neutrophils Percent Manual 48 % (46-73); Total Cells Counted 100
[2024-02-07 11:08] LABS: Platelet Estimate Adequate (Adequate)
[2024-02-07 11:09] LABS: Iron 53 ug/dL (50-170); Percent Iron Saturation 17 % (12-57)
[2024-02-07 11:17] LABS: Hemoglobin A1C 8.2 % (<5.7)
== END 2024-02-07 10:07 | disposition home or self-care (01) ==
LOC: CHSLAB 10:08
PROVIDERS: PCP Family Medicine; Visit Provider Nurse Practitioner Family
DX: E11.9 Type 2 diabetes mellitus without complications (principal); E61.1 Iron deficiency; J44.89 Other specified chronic obstructive pulmonary disease
CPT/HCPCS: 36415; 71046; 83036; 83540; 83550; 85025

== ENCOUNTER 2024-04-26 15:29 | Outpatient (CLI) | payer BC, SELFPAY ==
[2024-04-26 15:43] LABS: Basophils Absolute Auto 0.03 K/mm3 (0.00-0.10); Basophils Percent Auto 0.3 % (0.0-1.0); Eosinophils Absolute Auto 0.05 K/mm3 (0.02-0.50); Eosinophils Percent Auto 0.5 % (1.0-6.0); Hematocrit 41.6 % (35.0-49.0); Hemoglobin 14.4 g/dL (12.0-15.0); Immature Granulocyte Absolute 0.04 K/mm3 (0.00-0.00); Immature Granulocyte Percent A 0.4 % (0.0-0.0); Lymphocytes Absolute Auto 1.65 K/mm3 (1.10-4.50); Lymphocytes Percent Auto 17.6 % (18.0-42.0); Mean Corpuscular HGB Conc 34.6 g/dL (32-36); Mean Corpuscular Hemoglobin 31.1 pg (27.0-31.0); Mean Corpuscular Volume 89.8 fL (78.0-102.0); Mean Platelet Volume 10.4 fl (9.2-11.8); Monocytes Absolute Auto 0.59 K/mm3 (0.10-0.90); Monocytes Percent Auto 6.3 % (2.0-11.0); Neutrophils Absolute Auto 6.99 K/mm3 (1.70-7.20); Neutrophils Percent Auto 74.9 % (50.0-70.0); Platelet Count Result 257 K/mm3 (150-420); Red Blood Count 4.63 M/mm3 (4.20-5.40); Red Cell Distribution Width 11.9 % (11.6-14.4); White Blood Count 9.4 K/mm3 (4.8-10.8)
[2024-04-27 17:04] LABS: Immunoglobulin E 10 kU/L (<OR=114)
[2024-04-27 17:19] LABS: Alternaria alternata IgE <0.10 kU/L; Alternaria alternata IgE Class 0; Aspergillus fumigatus IgE <0.10 kU/L; Bermuda Grass (G2) IgE <0.10 kU/L; Bermuda Grass (G2) IgE Class 0; Cat Dander IgE <0.10 kU/L; Cat Dander IgE Class 0; Cladosporium herbarum IgE <0.10 kU/L; Cladosporium herbarum IgE Clas 0; Cockroach IgE <0.10 kU/L; Cockroach IgE Clas 0; Common Ragweed IgE Class 0; Cottonwood IgE <0.10 kU/L; Dermatophagoides Farinae Class 0; Dermatophagoides Pterony Class 0; Dermatophagoides Pteronyssinus <0.10 kU/L; Dog Dander IgE <0.10 kU/L; Elm (T8) IgE <0.10 kU/L; Elm (T8) IgE Class 0; Hickory/Pecan IgE <0.10 kU/L; Hickory/Pecan IgE Class 0; Immunoglobulin E 10 kU/L (<OR=114); Maple Box Elder IgE Class 0; Mountain Cedar IgE <0.10 kU/L; Mountain Cedar IgE Class 0; Mouse Urine Proteins IgE <0.10 kU/L; Mouse Urine Proteins IgE Class 0; Oak IgE <0.10 kU/L; Peniciliium notatum class 0; Penicillium notatum (M1) IgE <0.10 kU/L; Rough Marsh <0.10 kU/L; Rough Marsh Elder Class 0; Rough Pigweed (W14) IgE <0.10 kU/L; Rough Pigweed (W14) IgE Class 0; Russian Thistle <0.10 kU/L; Sycamore IgE <0.10 kU/L; Sycamore IgE Class 0; Timothy Grass IgE <0.10 kU/L; Timothy Grass IgE Class 0; Walnut Tree IgE <0.10 kU/L; Walnut Tree IgE Class 0; White Ash IgE Class 0; White Mulberry IgE <0.10 kU/L; White Mulberry IgE Class 0
== END 2024-04-26 15:30 | disposition home or self-care (01) ==
LOC: CHSLAB 15:31
PROVIDERS: PCP Family Medicine; Visit Provider Nurse Practitioner Family
DX: J45.909 Unspecified asthma, uncomplicated (principal)
CPT/HCPCS: 36415; 82785; 85025; 86003

== ENCOUNTER 2024-07-25 16:29 | Outpatient (CLI) | payer BC, SELFPAY ==
[2024-07-25 17:15] LABS: Hematocrit 42.6 % (35.0-49.0); Hemoglobin 14.8 g/dL (12.0-15.0); Mean Corpuscular HGB Conc 34.7 g/dL (32-36); Mean Corpuscular Hemoglobin 31.1 pg (27.0-31.0); Mean Corpuscular Volume 89.5 fL (78.0-102.0); Mean Platelet Volume 10.3 fl (9.2-11.8); Platelet Count Result 244 K/mm3 (150-420); Red Blood Count 4.76 M/mm3 (4.20-5.40); White Blood Count 11.2 K/mm3 (4.8-10.8)
[2024-07-25 17:45] LABS: Band Neutrophils Percent 0 % (0-6); Basophils Percent Manual 0 % (0-1); Eosinophils Absolute Manual 5.26 K/mm3 (0.02-0.50); Eosinophils Percent Manual 47 % (1-6); Lymphocytes Absolute Manual 1.45 K/mm3 (1.1-4.5); Lymphocytes Percent Manual 13 % (18-44); Monocytes Absolute Manual 0.33 K/mm3 (0.1-0.90); Monocytes Percent Manual 3 % (3-9); Neutrophils Absolute Manual 4.14 K/mm3 (1.7-7.2); Neutrophils Percent Manual 37 % (46-73); Platelet Estimate Adequate (Adequate); Total Cells Counted 100
== END 2024-07-25 16:30 | disposition home or self-care (01) ==
LOC: CHSLAB 16:31
PROVIDERS: PCP Family Medicine; Visit Provider Nurse Practitioner Family
DX: J45.909 Unspecified asthma, uncomplicated (principal)
CPT/HCPCS: 36415; 85025

== ENCOUNTER 2024-09-21 11:10 | Outpatient (CLI) | payer BC, SELFPAY ==
[2024-09-21 12:07] LABS: SARS-CoV-2 RNA PCR Negative (Negative)
[2024-09-21 12:09] LABS: Influenza A QL RT-PCR Positive (Negative); Influenza B QL RT-PCR Negative (Negative); RSV RNA, RT-PCR Negative (Negative)
== END 2024-09-21 11:11 | disposition home or self-care (01) ==
PROVIDERS: PCP Family Medicine; Visit Provider Nurse Practitioner Family
DX: R05.9 Cough, unspecified (principal); R50.9 Fever, unspecified; J10.1 Influenza due to other identified influenza virus with other respiratory manifestations
CPT/HCPCS: 87637

== ENCOUNTER 2025-02-01 19:28 | Emergency (ER) | payer BC, SELFPAY ==
--- NOTE | ~2025-02-01 | CT_ITS ---
CT brain wo con Ordering provider: Tunde Mendoza MD History: 50 years Female with . vison changes . Comparison: None. Technique: CT of the head without contrast. Radiation reduction technique utilized.The dose-length pr oduct was 681 mGy-cm. FINDINGS: BRAIN PARENCHYMA AND CSF SPACES: No midline shift, mass effect or hemorrhage. The brain parenchyma a nd CSF spaces are otherwise normal. VISUALIZED PARANASAL SINUSES: Well aerated. MASTOIDS: Well aerated. BONES: The bones appear intact. SOFT TISSUES: Visualized nasopharynx is normal. Superficial soft tissues are normal. Soft tissue swelling over the right orbit is seen. Clinical evaluation advised. IMPRESSION: No acute intracranial findings. Soft tissue swelling over the right orbit. Clinical evaluation advised. Reviewed, dictated and finalized at location A.
--- NOTE | ~2025-02-01 | CT_ITS ---
CT orbit BI w con Ordering provider: Tunde Mendoza MD History: . Soft tissue swelling over R orbit seen on CT Brain . Comparison: None. Technique: Thin slice axial CT of the orbits was performed without contrast. Coronal reformatted imag es were also obtained. Radiation reduction technique utilized.The dose-length product was 366.66 mGy- cm. 75 mL Omnipaque 350 was given IV. FINDINGS: PARANASAL SINUSES: Well aerated. BONES: No facial fracture. ORBITS AND SUPERFICIAL SOFT TISSUES: The optic globes and orbits are normal. The superficial soft tis sues are normal. VISUALIZED MASTOIDS: Well aerated. IMPRESSION: NO ORBITAL FRACTURE IDENTIFIED. No definite abnormality seen in the right orbit. Most probably what is seen in the previous CT is ar tifactual. Reviewed, dictated and finalized at location A. IMPRESSION: NO ORBITAL FRACTURE IDENTIFIED. No definite abnormality seen in the right orbit. Most probably what is seen in the previous CT is artifactual.
[2025-02-01 19:30] VITALS: BP 166/85; PULSE 89; RESP 16; TEMP 37.1; O2SAT 97
--- OUTSIDE RECORDS SUMMARY | 2025-02-01 19:31 | XMS_ITS | Patient Health Record ---
Author Organization [facility] Address [address] [place], [place] [address] Care Team Providers Care Waiter/Waitress Counter Name Role Phone Carmen Brodericksh Unavailable Unavailable JOSE F GUALLPA Unavailable [phone] Allergies No Known Allergies Reason For Referral No Information Medications Medication SIG (Take, Route, Frequency, Duration) Notes Start Date End Date Status Rexulti 1 MG Oral for 30 Days Active Lisinopril 30 MG Oral for 90 Days Active Sertraline HCl 100 MG Oral for 30 Days Active ALPRAZolam 0.25 MG Oral for 30 Days Active oxyBUTYnin Chloride ER 5 MG Oral for 90 Days Active Amphetamine-Dextroamphetam ine 20 MG Oral for 30 Days Active metFORMIN HCl 500 MG Oral for 30 Days Active Vitamin D (Ergocalciferol) 1.25 MG (06759 UT) Oral for 28 Days Activ e Prazosin HCl 1 MG Oral for 30 Days Active Albuterol Sulfate HFA 108 (90 Base) MCG/ACT Inhalation for 34 Days Active Social History Tobacco Use: Social History Observation Description Date Details (start date - stop date) Former Smoker NA - NA Tobacco Use/Smoking Question Answer Notes Tobacco use: former smoker Plan Of Treatment No Information Insurance Providers Payer Name Payer Address Payer Phone Subscriber Number Group Number Insured Name Patient Relationship to Insured Coverage Start Date Coverage End Date [facility] ([facility]) ATTN CLAIMS [address] [place] [address] [id number] Iraida Gaona Self - patient is the insured Medical (General) History Medical History History ICD Code acid reflux Asthma/Bronchitis Sleep apnea Diabetic Psychiatric Disorder hypertension restless leg syndrome
--- OUTSIDE RECORDS SUMMARY | 2025-02-01 19:31 | XMS_ITS | Clinical Summary ---
Author Organization [facility] Address [address] [place] [address] Care Team Providers Care Dye Stand Loader Name Role Phone Unavailable Primary Care Provider Unavailabl e Source Comments [facility],non-owned Affiliates and Associated Physician Practices is amultiple site organization consisting of ambulatory clinics and hospital sitesin [place], [place], [place]. This disclosure is being madepursuant to the Care Everywhere program and may not contain all information available regarding this patient. Last updated 18.Involver Allergies No known active allergies Medications * This document contains information received from the source organization and may not represent a complete record from that organization. * Be aware that medications may not be up to date on this document. Alwaysverify current medications with the patient. FLUoxetine (PROZAC) 40 MG capsuleIndication s:Major Depressive Disorder Take 40 mg by mouth once daily Reasons: Major Depressive Disorder Active ALPRAZolam (XANAX) 1 MG tabletIndications :Anxiety Take 1 tablet by mouth 4 times daily Reasons: Feeling Anxious 8 tablet 03/24/20 18 Active lamoTRIgine (LAMICTAL) 25 MG tabletIndications :Depression Take 2 tablets by mouth 2 times daily Reasons: Depression 60 tablet 1 03/24/20 18 Active lisinopril (PRINIVIL; ZESTRIL) 40 MG tabletIndications :Hypertension Take 1 tablet by mouth once daily Reasons: High Blood Pressure Disorder 15 tablet 1 03/25/20 18 Active risperiDONE (RISPERDAL) 0.5 MG tabletIndications :Major Depressive Disorder Take 1 tablet by mouth 2 times daily Reasons: Major Depressive Disorder 30 tablet 1 03/24/20 18 Active amphetamine-dextr oamphetamine (ADDERALL) 20 MG tabletIndications :Attention Deficit Hyperactivity Disorder Take 1 tablet by mouth 2 times daily Reasons: Attention Deficit Hyperactivity Disorder 8 tablet 03/25/20 18 Active nicotine (NICODERM CQ) 14 MG/24HR patchIndications: Nicotine Dependence Apply 1 patch to skin once daily Remove old patch before applying new patch. Reasons: Nicotine Addiction 7 patch 1 03/24/20 18 Active Active Problems Problem Noted Date Diagnosed Date Depression 03/21/2018 Immunizations Immunization Administration Dates Next Due TDAP (7yrs+) 03/20/2018 Family History * Patient is adopted Medical History Relation Name Comments Diabetes - Type 2 Maternal Grandfather Hypertension Maternal Grandfather Relation Name Status Comments Maternal Grandfather Social History Tobacco Use Types Packs/Day Years Used Date Smoking Tobacco: Every Day Smokeless Tobacco: Never Tobacco Cessation:Ready to Q uit: No; Counseling Given: Yes Alcohol Use Standard Drinks/Week Comments Yes 0 (1 standard drink = 0.6 oz pur e alcohol) social use Comments Unknown Sex and Gender Information Value Date Recorded Sex Assigned at Not on file Legal Sex Female 8:53 PM CDT Gender Identity Not on file Sexual Orientation Not on file Last Filed Vital Signs Vital Sign Reading Time Taken Comments Blood Pressure 143/89 03/25/2018 11:52 AM CDT Pulse 87 03/25/2018 6:05 AM CDT Temperature 36.6 C (97.8 F) 03/25/2018 11:52 AM CDT Respiratory Rate 16 03/25/2018 11:5 2 AM CDT Oxygen Saturation 95% 03/25/2018 11: 52 AM CDT Inhaled Oxygen Concentration - - Weight 112.1 kg (247 lb 3.2 oz) 018 10:52 AM CDT Height 170.2 cm (5' 7 ) 03/21/2018 11:2 0 AM CDT Body Mass Index 38.72 03/21/2018 11:20 AM CDT Plan of Treatment Health Maintenance Due Date Last Done Comments COLOGUARD (AGES 45-75) - COL ON CA SCREENING 1975 COLON MONITORING 1975 COLONOSCOPY - COLON CA SCREENING 1973 CT COLONOGRAPHY - COLON CA SCREENING 1975 Colorectal Cancer Screening 1973 FIT - COLON CA SCREENING 1973 FLEX SIG - COLON CA SCREENING 1975 MAMMOGRAM 1973 PAP SMEAR 1973 HIV SCREENING 01/17/1988 HEPATITIS C SCREENING 01/12/1991 HEPATITIS B VACCINE (1 of 3 - 19+ 3-dose series) 01/17/1992 PNEUMOCOCCAL VACCINE 50+ (1 of 2 - PCV) 01/17/1992 PNEUMOCOCCAL VACCINE (1 of 2 - PCV) 01/17/1992 ZOSTER VACCINE (1 of 2) 2023 LIPID TESTING 03/22/2023 03/22/2018 COVID-19 VACCINE (1 - 2023-2 5 season) 2024 DEPRESSION SCREENING 10/17/2024 INFLUENZA VACCINE (Season Ended) 2025 DTAP/TDAP/TD VACCINES (2 - T d or Tdap) 03/20/2028 03/20/2018 HIB VACCINE Aged Out No longer eligi ble based on patient's age to complete this topic HPV VACCINE Aged Out No longer eligi ble based on patient's age to complete this topic MENINGOCOCCAL (Group B) VACC INE SHARED DECISION-MAKING Aged Out No longer eligibl e based on patient's age to complete this topic MENINGOCOCCAL GROUPS A/C/Y/W VACCINE Aged Out No longer eligible b ased on patient's age to complete this topic Procedures Procedure Name Priority Date/Time Associated Diagnosis Comments LIPID PROFILE AM Draw 03/22/2018 6:29 AM CDT from Last 3 Months or Most Recently Relevant to Health Maintenance Results * LIPID PROFILE (03/22/2018 6:29 AM CDT) Cholesterol 196 <200 mg/dL 03/22/2018 6:59 AM CDT [facility] Triglycerides 124 <150 mg/dL 03/22/2018 6:59 AM CDT [facility] HDL Cholesterol 60 >40 mg/dL 8 6:59 AM CDT [facility] LDL Calculated 111 <130 mg/dL 03/22/2018 6:59 AM CDT [facility] VLDL Calculated 25 <=30 mg/dL 8 6:59 AM CDT [facility] Chol HDL Ratio 3.3 <4.5 03/22/2018 6:59 AM CDT [facility] LDL/HDL Ratio 1.9 <5.0 03/22/2018 6:59 AM CDT [facility] Blood BLOOD SPECIMEN / Unknown Venipuncture / Unknown 03/22/2018 6:29 AM CDT 03/22/2018 6:34 AM CDT Iván Kate MD LAB - CHEMISTRY ORDERABLES F inal Result [facility] [address] [place] [address] from Last 3 Months or Most Recently Relevant to Health Maintenance Insurance ANTH ANTH Advance Directives * Full Code (Latest Code Status on File) Date Activated Date Inactivated Comments 03/21/2018 12:41 PM 03/25/2018 4:31 PM
--- OUTSIDE RECORDS SUMMARY | 2025-02-01 19:32 | XMS_ITS | Data Portability ---
Author Organization [facility] Address [address] [place] [address] Assessment No assessment recorded. Plan of Treatment Reminders Order Date Submit Date Provider Last Modified By Organization Details Last Modified Time Details Appointments None recorded. Lab lipid panel, serum 2015 016 [email or web address] 6 [facility], [address] [place], [place] [address]Matchbin Julio C, [address], [place], [address], 6 14:17:11 CK (creatine kinase), total, serum 2015 016 [email or web address] 6 [facility], [address] [place] [address], [address], [place], [address], 6 14:17:11 CMP, serum or plasma 2015 016 [email or web address] [facility], [address], [address], [place], [address], 6 11:04:04 TSH + free T4, serum 2015 016 [email or web address] 6 [facility], [address] [place] [address], [address], [place], [address], 6 14:17:11 CBC w/ auto diff 2015 016 [email or web address] 6 [facility], [address], [address], [place], [address], 6 14:17:11 iron + total iron-brice ng capacity (TIBC), serum 2015 016 [email or web address] 6 [facility], [address], [address], [place], [address], 6 14:17:11 HbA1c (hemoglobi n A1c), blood 2015 016 [email or web address] 6 [facility], [address], [address], [place], [address], 6 14:17:11 Referral physical therapist referral - left Achilles tendinitis . Please eval and treat . 3 times per week , 12 sessions . thank you 2015 016 [email or web address] Not available 6 16:47:[address] referral - chronic tachycardi a , occ chest pains , non-exerti onal . Please eval and treat prn . thanks 2014 016 [email or web address] Not available 6 08:36:06 Procedures None recorded. Surgeries None recorded. Imaging None recorded. Medication Orders lisinopril 20 mg-hydroch lorothiazi de 12.5 mg tablet 2015 016 [email or web address] 6 [facility] [place], [address], 6 14:17:11 ibuprofen 800 mg tablet 2015 [email or web address] [place] [address] [address] [place], [address], 6 14:17:11 lisinopril 20 mg-hydroch lorothiazi de 12.5 mg tablet 2014 015 [email or web address] 6 [facility] [address] [place], [address], 5 13:13:06 Patient TargetsNo targets recorded. Patient Instructions Encounter Date Encounter Id Patient Instructions Last Modified By Organization Details Last Modified Time 05/31/2016 [id number] counselled , she is to get herself a counsellor . 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 Please eval and treat prn . thanks Referring Physician: Gurpreet Biggs [facility], Encounter Date: 08/27/[address] ease eval and treat . 3 times per week , 12 sessions . thank you Referring Physician: Gurpreet Biggs [facility], Encounter Date: 05/31/2016 Problems Name Problem SNOMED Code Status Onset Date Resolution Date Notes Provider Name and Address Organization Details Recorded Time Essential hypertension 88540763 Active Gurpreet Biggs PA-C Attn: Luke calhoun,[address] [facility], [place], [address], [place] [facility] 6 14:17:11 Obesity 393512594 Active Gurpreet Biggs PA-C Attn: Accountin g,[address] [facility], [place], [address], [place] [facility] 6 14:17:11 Tachycardia 9649627 Active Gurpreet Biggs PA-C Attn: Accountin g,[address] [facility], [place], [address], [place] [facility] 5 13:13:06 Frontal headache 794325632 Active Gurpreet Biggs PA-C Attn: Accountin g,[address] [facility], [place], [address], [place] [facility] 6 14:17:11 Achilles tendinitis 63923455 Active Gurpreet Biggs PA-C Attn: Accountin g,[address] [facility], [place], [address], [place] [facility] 6 14:17:11 Anemia 062772137 Active Gurpreet Biggs PA-C Attn: Accountdarryl g,[address] [facility], [place], [address], [facility] 6 14:17:11 Low back pain 348308394 Active Gurpreet Biggs PA-C Attn: Luke calhoun,[address] [facility], [place], [address], [facility] 6 20:41:38 Problem Notes None recorded. Procedures Surgical History Date Name Laterality Status Provider Name and Address Organization Details Recorded Time Tonsillectomy completed Alanna KE العراقي [facility] 08/27/2015 12:51:31 Imaging Results None recorded. Procedure Notes None recorded. Medical Equipment None Reported. Allergies No known drug allergies Medications Name Sig Start Date Stop Date Status Note LastModified by Organization Details LastModified Time Adderall 20 mg tablet Take 1 tablet 3 times a day by oral route. active Not Available Not Available No t Available Xanax 0.5 mg tablet Take 1 tablet as needed by oral route. active usually 2 per day Not Available Not Available Not Available lisinopril 20 mg-hydrochlo rothiazide 12.5 mg tablet TAKE ONE TABLET BY MOUTH ONCE DAILY active Not Available Not Available No t Available ibuprofen 800 mg tablet Take 1 tablet 3 times a day by oral route for 30 days. 2015 active Not Available Not Available Not Avai lable tramadol 50 mg tablet Take 1 tablet every day by oral route. active Not Available Not Available No t Available Lamictal 200 mg tablet Take 1.5 tablets every day by oral route. active Not Available Not Available No t Available Klonopin 2 mg tablet Take 1 tablet 3 times a day by oral route. active Not Available Not Available No t Available Zoloft 100 mg tablet Take 2 tablets every day by oral route. active Not Available Not Available No t Available Vitals Date Recorded Body weight Oxygen saturation Oxygen saturation in Arterial blood by Pulse oximetry Body height Body mass index (BMI) Heart rate Body temperature Systolic blood pressure Diastolic blood pressure Provider Name and Address Organization Details Last Updated DateTime 5 683351. 382699 g 96 % 96 % 170.18 cm 38.9 kg/m2 115 /min 98.2 [degF] 132 mm[Hg] 80 mm[Hg] Alanna العراقي MA [facility] 5 12:56:16 Date Recorded Heart rate Oxygen saturation Oxygen saturation in Arterial blood by Pulse oximetry Body temperature Body weight Body height Body mass index (BMI) Systolic blood pressure Diastolic blood pressure Provider Name and Address Organization Details Last Updated DateTime 6 91 /min 96 % 96 % 98 [degF] 458088. 04952 g 170.18 cm 40.4 kg/m2 112 mm[Hg] 78 mm[Hg] Alanna العراقي MA [facility] 6 12:54:08 Social History Question Answer Notes LastModified by Organizat ion Details LastModified Time Tobacco Smoking Status Current Every Day Smoker Alanna العراقي MA null, [facility] 08/27/2015 12:52:42 How Much Tobacco Do You Smoke? 1.5 PPD Information not available 08/27/2015 How Many Years Have You Smoked Tobacco? 25 Information not available 08/27/2015 Sex: Unknown Functional Status None recorded. Mental Status None recorded. Family History Relationship Description Onset Age of this Age Resolved Age Notes LastModified by Organization Details LastModified Time Mother Depressive disorder bi polar disord er [email or web address] Not available 08/27/2015 12:52:42 Medical History Condition Response Anxiety Disorder Y High Blood Pressure Y Depression Y Asthma Y Gynecological HistoryNo gynecological history recorded. Obstetrics History GPAL:G 0 P 0 0 0 0 Immunizations Vaccine Type Date Status Note Provider Nam e and Address Organization Details Recorded Time COVID-19, mRNA, LNP-S, PF, 100 mcg/0.5mL dose or 50 mcg/0.25mL dose 1 completed Josiah gupta [place] 04/21/2021 14:18:05 COVID-19, mRNA, LNP-S, PF, 100 mcg/0.5mL dose or 50 mcg/0.25mL dose 1 completed Josiah gupta [place] [facility] 04/21/2021 14:18:23 Influenza, split virus, quadrivalent, preservative 5 completed [facility] Available [facility] 11/03/2019 02:40:54 Past Encounters Encounter ID Performer Location Encounter Start Date Encounter Closed Date Diagnosis/Indication Diagnosis SNOMED-CT Code Diagnosis ICD10 Code Diagnosis Note [id number] Maricel Canoley (Adult Med) [address] [place] [address] 08/27/2015 12:36:50 08/27/2015 13:21:58 Essential hypertension 53429574 I10 Obesity 455678417 E66.9 Administra tion of influenza vaccine 03315748 Z23 Tachycardia 3061856 R00. 0 [id number] TAWANA Taylor (Adult Med) [address] [place] [address] 05/31/2016 12:44:02 05/31/2016 16:47:32 Essential hypertension 12892159 I10 Obesity 870422448 E66.9 Frontal headache 3124540 05 R51 Achilles tendinitis 1165 4001 M76.62 Hyperlipid emia screening 508892376 Z13.220 Thyroid di sorder screening 600773664 Z13.29 Diabetes m ellitus screening 699875439 Z13.1 Anemia 833107259 D64.9 Health Concerns Section Related Observation LastModified by Organization Detai ls LastModified Time None Recorded Concern Status LastModified by Organization Details LastModified Time None Recorded Advance Directives Directive None Recorded Payers Encounter Date Sequence Insurance Name Policy Number Policy Gil Covered Member ID Gil Member ID Guarantor Name 08/27/2015 SLIDING FEE SCHEDULE - DISCOUNT Iraida Candelaria 05/31/2016 1 [place] Iraida Candelaria [id number] Iraida Gaona Notes Date Note Type Note Provider Name and Address Organization Details Recorded Time 05/31/2016 text/html hospitalized at [facility] for a week . released April 02 ; feels the best she has felt in years . On 6 mg Xanax daily , cannot get it lower than this . frontal headaches daily Gurpreet Biggs PA-C Attn: Accounting,[address] [facility], [place], [address], [place] [facility] [place] 05/31/2016 14:17:29 OBGyn Episode No OBEpisode recorded.
--- OUTSIDE RECORDS SUMMARY | 2025-02-01 19:32 | XMS_ITS ---
Author Organization [facility] Address [address] [place], [place] [address] Care Team Providers Care Manager Of Construction Name Role Phone Jr Broderick Unavailable Unavailable JOSE F GUALLPA Unavailable [phone] REASON FOR VISIT Plantar fasciitis Encounters Encounter Location Date Provider Diagnosis [facility] [place] [address] [place], [place] [id number] 04/09/2024 JOSE F GUALLPA Plan Of Treatment No Information Progress Notes * ADRIANOPearlOB:1975 ( 50 yo F)Acc No.[id number]:04/09/2024 Patient: Iraida LEMONS Provider: Benjamin Guallpa DPM :1975 A ge:49 Y S ex:Female Date:04/09/2024 Address:[address] [id number] Subjective: * Chief Complaints: * 1 . Plantar fasciitis. * Medical History: Objective: * Vitals: Assessment: Plan: * Treatment: * Billing Information: * Visit Code: * Procedure Codes: * Electronic signature of JOSE F GUALLPA DPM on 02/01/2025 at 06:02 PM CDT Sign off status: Pending * Provider: Benjamin Guallpa DPM Date: 0 04/09/2024 Generated for Printi ng/Faxing/eTransmitting on: 02/01/2025 06:02 PM CDT
--- OUTSIDE RECORDS SUMMARY | 2025-02-01 19:32 | XMS_ITS | Encounter Summary ---
Author Organization [facility] Healthcare Address [address] [place] [address] Care Team Providers Care Jewel Setter Name Role Phone Dora Barber MD Primary Care Provider Reason for Visit * Reason Comments Blurred Vision Patient here for c/o blurry vision that started 2 days ago, pressure behind eyes. Encounter Details Date Type Department Care Team (Late st Contact Info) Description 02/01/2025 6:45 PM CDT Office Visit [facility] at [address] [phone] Tiffanie Ruiz, ALEE [address] [place] [address] [address] [place] [address] Blurry vision, bilateral (Primary Dx); Elevated blood pressure reading in office with diagnosis of hypertension; Eye pressure Social History Tobacco Use Types Packs/Day Years Used Date Smoking Tobacco: Never Assessed Alcohol Use Standard Drinks/Week Comments Yes 0 (1 standard drink = 0.6 oz pur e alcohol) Comments Unknown Sex and Gender Information Value Date Recorded Sex Assigned at Not on file 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 Gender Identity Not on file Sexual Orientation Not on file documented as of this encounter Last Filed Vital Signs Vital Sign Reading Time Taken Comments Blood Pressure 136/96 02/01/2025 6:13 PM CDT Pulse 88 02/01/2025 6:12 PM CDT Temperature 36.6 C (97.8 F) 02/01/2025 6:12 PM CDT Respiratory Rate 21 02/01/2025 6:12 PM CDT Oxygen Saturation 95% 02/01/2025 6:12 PM CDT Inhaled Oxygen Concentration - - Weight 117.9 kg (260 lb) 02/01/2025 6:12 PM CDT Height 172.7 cm (5' 8 ) 02/01/2025 6:12 PM CDT Body Mass Index 39.53 02/01/2025 6:12 PM CDT documented in this encounter Plan of Treatment Not on file documented as of this encounter Visit Diagnoses Diagnosis Blurry vision, bilateral- Primary Other specified visual disturbances Elevated blood pressure reading in office with diagnosis of hypertension Eye pressure documented in this encounter Discontinued Medications Medication Sig Discontinue Reason Start Date End Da te citalopram (CeleXA) 40 mg tablet take 1 tablet (40MG) by oral route every day 12/22/2010 02/01/2025 ARIPiprazole (ABILIFY) 5 mg tablet take 1 tablet by oral route every day 07/19/2011 02/01/2025 predniSONE (DELTASONE) 20 mg tablet take 1 tablet (20MG) by oral route 2 times every day 05/04/2012 02/01/2025 dextroamphetamine-amphe tamine (ADDERALL) 10 mg tablet take 1 tablet (10MG) by oral route 2 times every day before breakfast and at noon 05/04/2012 02/01/2025 documented as of this encounter Historical Medications * This list may reflect changes made after this encounter. clonazePAM (KlonoPIN) 2 mg tablet Take 1 tablet 3 times a day by oral route. ALPRAZolam (XANAX) 0.25 mg tablet Take 1 tablet (0.25 mg total) by mouth 3 (three) times a day 01/14/2025 Rexulti 1 mg tablet Take 1 tablet (1 mg total) by mouth daily 01/21/2025 EPINEPHrine 0.3 mg/0.3 mL auto-injection syringe INJECT 0.3 MG (0.3 ML) INTRAMUSCULARLY ONCE A SINGLE DOSE MAY REPEAT ONCE 01/25/2025 ergocalciferol (VITAMIN D) 50,000 unit capsule TAKE 1 CAPSULE BY MOUTH ONCE WEEK 01/14/2025 famotidine (PEPCID) 40 mg tablet TAKE 1 TABLET BY MOUTH EVERY DAY FOR 30 DAYS 11/22/2024 hydroCHLOROthia zide (HYDRODIURIL) 25 mg tablet Take 1 tablet (25 mg total) by mouth daily 01/05/2025 [facility] spacer USE DIRECTED WITH INHALER 12/07/2024 lisinopriL (PRINIVIL,ZESTR IL) 30 mg tablet Take 1 tablet (30 mg total) by mouth daily 01/23/2025 montelukast (SINGULAIR) 10 mg tablet Take 1 tablet (10 mg total) by mouth nightly 12/23/2024 oxyBUTYnin XL (DITROPAN-XL) 5 mg 24 hr tablet Take 1 tablet (5 mg total) by mouth daily 01/24/2025 prazosin (MINIPRESS) 1 mg capsule TAKE 1 CAPSULE BY MOUTH EVERYDAY AT BEDTIME 01/14/2025 Ozempic 1 mg/dose (4 mg/3 mL) pen injector injection INJECT 1 PEN WEEKLY 01/23/2025 sertraline (ZOLOFT) 100 mg tablet Take 1 tablet (100 mg total) by mouth daily 12/25/2024 predniSONE (DELTASONE) 10 mg tablet PLEASE SEE ATTACHED FOR DETAILED DIRECTIONS 01/25/2025 dextroamphetami ne-amphetamine (ADDERALL) 20 mg tablet TAKE 1 TABLET BY MOUTH TWICE A DAY, ONE IN THE MORNING, AND ONE AT 1 PM. 01/14/2025 added in this encounter Care Teams Jewel Setter Relationship Specialty [place] [address] [address] [phone] PCP - General 12/22/10 documented as of this encounter
--- OUTSIDE RECORDS SUMMARY | 2025-02-01 19:32 | XMS_ITS | Referral Summary ---
Author Organization [address] [address] Care Team Providers Care Shank Turner Name Role Phone Dora Barber MD Primary Care Provider [phone] Encounters Date Type Department Care Team Description 02/01/2025 6:45 PM CDT Office Visit [facility] at [address] [phone] Tiffanie Ruiz, ALEE Blurry vision, bilateral (Primary Dx); Elevated blood pressure reading in office with diagnosis of hypertension; Eye pressure from Last 3 Months Allergies No known active allergies Medications lamoTRIgine (LaMICtal) 100 mg tablet take 1 tablet (100MG) by oral route every evening 0 011 Active Additional Information Patient not taking.Reported on 02/01/2025 albuterol HFA (PROAIR HFA) 90 mcg/actuation inhaler inhale 2 puff by inhalation route 4 - 6 hours as needed 1 2 011 Active HYDROcodone-a cetaminophen (VICODIN) 5-500 mg per tablet take 1 tablet by oral route every 8 hours as needed for pain 30 0 012 Active Additional Information Patient not taking.Reported on 02/01/2025 cyclobenzapri ne (FLEXERIL) 10 mg tablet take 1 tablet (10MG) by oral route 3 times every day 30 0 012 Active Additional Information Patient not taking.Reported on 02/01/2025 dextroampheta mine-amphetam ine (ADDERALL) 20 mg tablet TAKE 1 TABLET BY MOUTH TWICE A DAY, ONE IN THE MORNING, AND ONE AT 1 PM. 025 Active predniSONE (DELTASONE) 10 mg tablet PLEASE SEE ATTACHED FOR DETAILED DIRECTIONS Active sertraline (ZOLOFT) 100 mg tablet Take 1 tablet (100 mg total) by mouth daily Active Ozempic 1 mg/dose (4 mg/3 mL) pen injector injection INJECT 1 PEN WEEKLY Active prazosin (MINIPRESS) 1 mg capsule TAKE 1 CAPSULE BY MOUTH EVERYDAY AT BEDTIME Active oxyBUTYnin XL (DITROPAN-XL) 5 mg 24 hr tablet Take 1 tablet (5 mg total) by mouth daily Active montelukast (SINGULAIR) 10 mg tablet Take 1 tablet (10 mg total) by mouth nightly Active lisinopriL (PRINIVIL,ZES TRIL) 30 mg tablet Take 1 tablet (30 mg total) by mouth daily Active Jyoti Humphrey [facility] spacer USE DIRECTED WITH INHALER Active hydroCHLOROth iazide (HYDRODIURIL) 25 mg tablet Take 1 tablet (25 mg total) by mouth daily Active famotidine (PEPCID) 40 mg tablet TAKE 1 TABLET BY MOUTH EVERY DAY FOR 30 DAYS Active ergocalcifero l (VITAMIN D) 50,000 unit capsule TAKE 1 CAPSULE BY MOUTH ONCE WEEK Active EPINEPHrine 0.3 mg/0.3 mL auto-injectio n syringe INJECT 0.3 MG (0.3 ML) INTRAMUSCULARLY ONCE A SINGLE DOSE MAY REPEAT ONCE Active Rexulti 1 mg tablet Take 1 tablet (1 mg total) by mouth daily Active ALPRAZolam (XANAX) 0.25 mg tablet Take 1 tablet (0.25 mg total) by mouth 3 (three) times a day Active clonazePAM (KlonoPIN) 2 mg tablet Take 1 tablet 3 times a day by oral route. Active citalopram (CeleXA) 40 mg tablet take 1 tablet (40MG) by oral route every day 0 011 2024 Discontinued ARIPiprazole (ABILIFY) 5 mg tablet take 1 tablet by oral route every day 0 011 2024 Discontinued predniSONE (DELTASONE) 20 mg tablet take 1 tablet (20MG) by oral route 2 times every day 10 0 012 2024 Discontinued dextroampheta mine-amphetam ine (ADDERALL) 10 mg tablet take 1 tablet (10MG) by oral route 2 times every day before breakfast and at noon 0 012 2024 Discontinued Active Problems Problem Noted Date Diagnosed Date Achilles tendinitis 02/01/2025 Anemia 02/01/2025 Essential hypertension 02/01/2025 Frontal headache 02/01/2025 Low back pain 02/01/2025 Obesity 02/01/2025 Tachycardia 02/01/2025 Depression 03/21/2018 Immunizations Immunization Administration Dates Next Due Hep A, Adult 09/28/2011 Social History Tobacco Use Types Packs/Day Years Used Date Smoking Tobacco: Never Assessed Alcohol Use Standard Drinks/Week Comments Yes 0 (1 standard drink = 0.6 oz pur e alcohol) Comments Unknown Sex and Gender Information Value Date Recorded Sex Assigned at Not on file 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
--- OUTSIDE RECORDS SUMMARY | 2025-02-01 19:32 | XMS_ITS | Clinical Summary ---
Author Organization [address] Address [address] [place] [phone] Care Team Providers Care Manager Database Administration Name Role Phone Dora Barber MD Primary Care Provider Allergies No known active allergies Medications lamoTRIgine [...] tablet PLEASE SEE ATTACHED FOR DETAILED DIRECTIONS 025 Active sertraline (ZOLOFT) 100 mg tablet Take 1 tablet (100 mg total) by mouth daily 025 Active Ozempic 1 mg/dose (4 mg/3 mL) pen injector injection INJECT 1 PEN WEEKLY 025 Active prazosin (MINIPRESS) 1 mg capsule TAKE [...] total) by mouth daily Active Jyoti Humphrey [facility] spacer USE DIRECTED WITH INHALER Active hydroCHLOROth iazide (HYDRODIURIL) 25 mg tablet Take 1 tablet (25 mg total) by mouth daily Active famotidine (PEPCID) 40 mg tablet TAKE 1 TABLET BY MOUTH EVERY DAY FOR 30 DAYS Active ergocalcifero l (VITAMIN D) 50,000 unit capsule TAKE 1 CAPSULE BY MOUTH ONCE WEEK 025 Active EPINEPHrine 0.3 mg/0.3 mL auto-injectio n [...] 02/01/2025 Obesity 02/01/2025 Tachycardia 02/01/2025 Depression 03/21/2018 Encounters Date Type Department Care Team Description 02/01/2025 6:45 PM CDT Office Visit [facility] at [address] [phone] Tiffanie Ruiz NP Blurry vision, bilateral (Primary Dx); Elevated blood pressure reading in office with diagnosis of hypertension; Eye pressure from Last 3 Months Immunizations Immunization Administration Dates Next Due Hep A, Adult 09/28/2011 Surgical History Surgery Date Site/Laterality Comments OTHER SURGICAL HISTORY Bipolar: Dr. 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 Gender Identity Not on file Sexual Orientation Not on file Obstetrics History Last Filed Vital Signs Vital Sign Reading [...] 02/01/2025 6:12 PM CDT Plan of Treatment Health Maintenance Due Date Last Done Comments Breast Cancer Screening-Mammogram 1973 Cervical Cancer Screening 1973 Colon Cancer Screening-Colonoscopy 1973 Depression Screening 1973 Hepatitis C Screening 1973 Hepatitis B Screening 1991 Regular Well Visit/Exam 18-64 1991 Zoster Vaccine (1 of 2) 2023 Covid-19 Vaccine (3 - 2023-2 5 season) 2024 01/30/2021, 01/02/2021 Influenza Vaccine (Season Ended) 2025 08/27/2015 DTaP/Tdap/Td Vaccine (2 - Td or Tdap) 03/20/2028 03/20/2018 Pneumococcal vaccine <65 Aged Out No longer eligible based on patient's age to complete this topic Insurance [employer] Care Teams Manager Database Administration Relationship Specialty [place] [address] [phone] PCP - General 12/22/10
[2025-02-01 20:58] LABS: Basophils Percent Auto 0.2 % (0.2-1.2); Eosinophils Absolute Auto 0.1 K/mm3 (0-0.3); Eosinophils Percent Auto 1.3 % (0-4.4); Hematocrit 46.7 % (37.0-47.0); Hemoglobin 15.2 g/dL (12.0-15.0); Immature Granulocyte Absolute 0.03 K/mm3 (0.00-0.031); Immature Granulocyte Percent A 0.3 % (0-0.5); Lymphocytes Absolute Auto 2.32 K/mm3 (0.9-3.2); Mean Corpuscular HGB Conc 32.5 g/dl (32-36); Mean Corpuscular Volume 92.1 fl (80-100); Mean Platelet Volume 10.1 fl (7.4-10.4); Monocytes Absolute Auto 0.7 K/mm3 (0.1-0.6); Monocytes Percent Auto 6.4 % (2.6-8.5); Neutrophils Absolute Auto 7.9 K/mm3 (1.3-6.7); Neutrophils Percent Auto 70.8 % (45.5-73.1); Platelet Count Result 336 k/mm3 (150-375); Red Blood Count 5.07 M/mm3 (4.2-5.4); Red Cell Distribution Width 12.6 % (11.5-14.5); White Blood Count 11.1 K/mm3 (4.5-10.0)
[2025-02-01 21:11] LABS: Alanine Aminotransferase 39 U/L (6-35); Albumin Level 4.6 g/dL (3.5-5.1); Alkaline Phosphatase 98 U/L (38-126); Anion Gap 8 mmol/L (4-12); Aspartate Amino Transferase 26 U/L (14-36); Bilirubin,Total 0.8 mg/dL (0.2-1.3); Blood Urea Nitrogen 12 mg/dL (7-17); CRP 0.5 mg/dL (<1.0); Calcium 9.4 mg/dL (8.4-10.2); Carbon Dioxide 32 mmol/L (22-30); Chloride 96 mmol/L (98-107); Estimated CRCL calculation 105 ml/min; Estimated Glomerular Filt Rate > 60; Glucose 233 mg/dL (65-110); Magnesium 2.1 mg/dL (1.6-2.3); Sodium 136 mmol/L (137-145)
[2025-02-01 21:22] LABS: Erythrocyte Sedimentation Rate 4 mm/hr (0-20)
[2025-02-01 21:58] VITALS: BP 132/89; PULSE 95; RESP 18; O2SAT 98
--- NOTE | 2025-02-01 22:09 | ED_ITS ---
HPI - Eye Problem General Chief complaint: Eye Problems Stated complaint: blurry vision Time Seen by Provider: 02/01/25 21:53 History of Present Illness HPI Narrative: Patient is a 50-year-old female who presents emergency department this evening stating that she has noticed that her vision is slightly blurry. Patient states that she woke up in the morning and noticed it. Denies any additional symptoms including any headaches, dizziness, lightheadedness, focal weakness, numbness and tingling. Patient does wear glasses and does see an eye doctor and states that the last time she saw him was approximately 1 month ago and her exam was normal. Also admits that she is a diabetic. Denies any recent illness, any fevers or chills, any eye pain. Patient initially went to an urgent care and they noticed that her blood pressure was elevated so they sent her here for further evaluation. Patient admits that she does not check her blood pressure regularly. Patient states that since this she feels as though the blurred vision has significantly improved. There are no additional modifying, alleviating, or precipitating factors at this time. Related Data Home Medications ?Medication ?Instructions ?Recorded ?Confirmed ?Last Taken ?Type brexpiprazole 1 mg tablet (Rexulti) 1 mg PO DAILY 11/28/20 01/25/25 Unknown History dextroamphetamine-amphetamine 5 mg 20 mg PO BID 11/28/20 01/25/25 Unknown History tablet (Adderall) famotidine 10 mg tablet 10 mg PO BID 04/02/24 01/25/25 Unknown History alprazolam 0.5 mg tablet 0.25 mg PO TID 09/11/24 01/25/25 Unknown History alprazolam 2 mg tablet (Xanax) 2 mg PO QHS 01/25/25 01/25/25 Unknown History sertraline 25 mg tablet (Zoloft) 150 mg PO DAILY 01/25/25 01/25/25 Unknown History Allergies Allergy/AdvReac Type Severity Reaction Status Date / Time No Known Allergies Allergy Mild Verified 02/01/25 22:02 Review of Systems 2 Review of Systems: All systems are reviewed and are negative unless stated otherwise in the HPI. [facility] Past Medical History Medical History Depression JUANITA (generalized anxiety disorder) Nicotine dependence, cigarettes, uncomplicated HTN (hypertension) Surgical History Surgical History Hx of tonsillectomy Age 3 Family History Family History Mother Depression Family history of bipolar disorder Family history of coronary artery disease Family history of type 2 diabetes mellitus Social History Social History Smoking packs per day: 1 Smoking cigarettes per day: 20.0 Years smoked: 29 Smoking pack-years: 29.00 Smoking status: Former smoker Tobacco type: cigarettes and e-cigarettes/vaping Second hand tobacco smoke exposure: Yes Smoking end date: 10/17/19 Alcohol intake: current Substance use: never Substance use type: marijuana Do You Feel Safe in your Home?: Yes Lack of Transportation: No Lack of Food: Never True Current Housing: I Have Housing Concerned About Future Housing: No Difficulty Paying Gas/Electric Bills: No Difficulty Paying for Meds: No Currently Unemployed: No Education: High School Diploma/GED Difficulty w/ Childcare or Family Care: No Living arrangements: alone Spiritual care concerns: No Exam 2 Narrative: General: Alert, awake, afebrile, in no acute distress. HEENT: PERRL, no rhinorrhea, no post nasal drip, oropharynx clear. Neck: Trachea midline, no JVD, no lymphadenopathy. Cardiovascular: Regular rate and rhythm, no murmurs, rubs or gallops, no peripheral edema. Respiratory: Clear to auscultation bilaterally, no tachypnea, no wheezing, no rhonchi, no rubs, no respiratory distress. Abdomen: Soft, nontender, nondistended, no rebound, no guarding, no peritoneal signs. Musculoskeletal: No joint swelling or deformity, normal muscle tone. Skin: No rashes or petechia, no signs of infection. Psychiatric: Alert and oriented, normal behavior and judgment for situation. Neurological: Alert and oriented to person, place, and time. Follows all commands. No focal deficits, speech is clear and fluent. Course Vital Signs Vital signs: Vital Signs Temperature 98.8 F 02/01/25 19:30 Pulse Rate 89 02/01/25 19:30 Respiratory Rate 16 02/01/25 19:30 Blood Pressure 166/85 H 02/01/25 19:30 Pulse Oximetry 97 02/01/25 19:30 Oxygen Delivery Room Air 02/01/25 19:30 Temperature 98.8 F 02/01/25 19:30 Pulse Rate 95 02/01/25 21:58 Respiratory Rate 18 02/01/25 21:58 Blood Pressure 132/89 02/01/25 21:58 Pulse Oximetry 98 02/01/25 21:58 Oxygen Delivery Room Air 02/01/25 19:30 MDM - Eye Problem MDM Narrative Medical decision making narrative: The patient was evaluated by myself in the emergency department. History is obtained from patient who is an independent historian and physical exam was performed. External medical records were reviewed at this time. IV was established and pertinent tests were ordered. Laboratory results obtained revealing no acute process. Imaging studies obtained included CT brain without IV contrast which was independently interpreted by me revealing: No acute intracranial findings. Soft tissue swelling over the right orbit. Clinical evaluation advised. At this time, CT bilateral orbits with IV contrast was obtained at this time and independently interpreted by me revealing: No definite abnormality seen in the right orbit. Most probably what is seen in the previous CT is artifactual. Differential diagnosis considerations include hypertensive urgency versus emergency, stroke-like symptoms, orbital cellulitis. Comorbidities impacting this visit include history of hypertension and diabetes. I have evaluated and discussed social determinants of health with the patient that could potentially impact subsequent diagnosis and treatment plans. On repeat assessment of the patient, reevaluation revealed that the patient is doing well and is in no acute distress. Patient symptoms have improved since she arrived to our emergency department. Repeat vital signs were all reviewed and noted to be stable. Differential diagnosis and treatment plan were discussed with the patient at bedside. Patient agrees with discussion and after shared medical decision making agrees with discharge. All questions were answered to the patient's satisfaction. Patient will follow up with her wood craftsman in 3-5 days. Patient was provided with strict return precautions and instructed to return to the emergency department if any new or worsening symptoms develop. The patient was discharged in stable condition. Lab Data 02/01/25 20:50 02/01/25 20:50 Labs: Lab Results 02/01/25 Range/Units 20:50 WBC 11.1 H (4.5-10.0) K/mm3 RBC 5.07 (4.2-5.4) M/mm3 Hgb 15.2 H (12.0-15.0) g/dL Hct 46.7 (37.0-47.0) % MCV 92.1 (80-100) fl MCH 30.0 (26-34) pg MCHC 32.5 (32-36) g/dl RDW 12.6 (11.5-14.5) % Plt Count 336 (150-375) k/mm3 MPV 10.1 (7.4-10.4) fl Immature Gran % (Auto) 0.3 (0-0.5) % Neut % (Auto) 70.8 (45.5-73.1) % Lymph % (Auto) 21.0 (18.3-44.2) % [place] % (Auto) 6.4 (2.6-8.5) % Eos % (Auto) 1.3 (0-4.4) % Baso % (Auto) 0.2 (0.2-1.2) % Lymph # (Auto) 2.32 (0.9-3.2) K/mm3 [place] # (Auto) 0.7 H (0.1-0.6) K/mm3 Eos # (Auto) 0.1 (0-0.3) K/mm3 Baso # (Auto) 0.0 (0.0-0.1) K/mm3 Abs Immat Gran (auto) 0.03 (0.00-0.031) K/mm3 Absolute Neuts (auto) 7.9 H (1.3-6.7) K/mm3 Absolute Nucleated RBC 0.000 (0.0-0.012) K/mm3 Nucleated RBC % 0.0 (0.0-0.2) % ESR 4 (0-20) mm/hr Sodium 136 L (137-145) mmol/L Potassium 4.0 (3.4-5.0) mmol/L Chloride 96 L (98-107) mmol/L Carbon Dioxide 32 H (22-30) mmol/L Anion Gap 8 (4-12) mmol/L BUN 12 (7-17) mg/dL Creatinine 0.73 (0.7-1.0) mg/dL Estim Creat Clear Calc 105 ml/min Estimated GFR > 60 (59 - ) Glucose 233 H (65-110) mg/dL Calcium 9.4 (8.4-10.2) mg/dL Magnesium 2.1 (1.6-2.3) mg/dL Total Bilirubin 0.8 (0.2-1.3) mg/dL AST 26 (14-36) U/L ALT 39 H (6-35) U/L Alkaline Phosphatase 98 (38-126) U/L C-Reactive Protein 0.5 (<1.0) mg/dL Total Protein 7.0 (6.3-8.2) g/dL Albumin 4.6 (3.5-5.1) g/dL Discharge Plan Discharge Clinical Impression: Blurred vision Patient Disposition: Home Condition: Improved Instructions: Antibiotic Form, Blurred Vision (ED) Additional Instructions: Please follow-up with your family doctor/wood craftsman within the next 3-5 days. Return to the emergency department if any new or worsening symptoms develop. Patient Language: Luxembourger Prescriptions: No Action alprazolam [Xanax] 2 mg tablet 2 mg PO QHS prednisone 10 mg tablet 10 mg PO DIRECTED Qty: 34 0RF Rx Instructions: Take 4 tablets by mouth daily for 4 days, then 3 tablets for 3 days, 2 tablets for 3 days, 1 tablet for 3 days Breztri Aerosphere 160-9-4.8 mcg/actuation HFA aerosol inhaler 2 inh inhalation QAM AND QPM Qty: 10.7 11RF Dupixent Syringe 300 mg/2 mL syringe 300 mg subcut .Every 2 weeks Qty: 4 11RF epinephrine [EpiPen 2-Sonido] 0.3 mg/0.3 mL auto-injector 0.3 mg IM ONCE Qty: 2 0RF Rx Instructions: as a single dose; may repeat once famotidine 10 mg tablet 10 mg PO BID (DME) inhalational spacing device Spacer See Rx Instructions .ROUTE .MEDSUPPLY Qty: 1 0RF Rx Instructions: As directed budesonide 160 mcg-glycopyr 9 mcg-formot 4.8 mcg/actuation HFA inhaler 160-9-4.8 mcg/actuation HFA aerosol inhaler 0RF alprazolam 0.5 mg tablet 0.25 mg PO TID dextroamphetamine-amphetamine [Adderall] 5 mg tablet 20 mg PO BID Rx Instructions: administer doses at least 4-6 hours apart Rexulti 1 mg tablet 1 mg PO DAILY sertraline [Zoloft] 25 mg tablet 150 mg PO DAILY clonidine HCl 0.1 mg tablet 0.1 mg PO DAILY PRN (Reason: BP>140/90) Qty: 10 0RF nicotine 21 mg/24 hr patch 24 hour See Rx Instructions .ROUTE .COMPLEX Qty: 28 0RF Dose Instruction: APPLY 1 PATCH TRANSDERMALLY DAILY Rx Instructions: APPLY 1 PATCH TRANSDERMALLY DAILY hydrochlorothiazide 25 mg tablet See Rx Instructions .ROUTE .COMPLEX Qty: 90 2RF Dose Instruction: TAKE 1 TABLET BY MOUTH EVERY DAY Rx Instructions: TAKE 1 TABLET BY MOUTH EVERY DAY oxybutynin chloride 5 mg tablet extended release 24hr See Rx Instructions .ROUTE .COMPLEX Qty: 90 2RF Dose Instruction: TAKE 1 TABLET BY MOUTH EVERY DAY Rx Instructions: TAKE 1 TABLET BY MOUTH EVERY DAY montelukast 10 mg tablet See Rx Instructions .ROUTE .COMPLEX Qty: 90 3RF Dose Instruction: TAKE 1 TABLET BY MOUTH EVERYDAY AT BEDTIME Rx Instructions: TAKE 1 TABLET BY MOUTH EVERYDAY AT BEDTIME albuterol sulfate 2.5 mg /3 mL (0.083 %) solution for nebulization 2.5 mg inhalation QID PRN (Reason: shortness of breath or wheezing) Qty: 360 1RF albuterol sulfate 90 mcg/actuation HFA aerosol inhaler See Rx Instructions .ROUTE .COMPLEX Qty: 6.7 2RF Dose Instruction: INHALE 1-2 PUFFS EVERY 4-6 HOURS NEEDED FOR SHORTNESS OF BREATH OR WHEEZING Rx Instructions: INHALE 1-2 PUFFS EVERY 4-6 HOURS NEEDED FOR SHORTNESS OF BREATH OR WHEEZING lisinopril 30 mg tablet See Rx Instructions .ROUTE .COMPLEX Qty: 90 4RF Dose Instruction: Take 1 tablet by mouth once daily Rx Instructions: Take 1 tablet by mouth once daily Ozempic 1 mg/dose (4 mg/3 mL) pen injector See Rx Instructions .ROUTE .COMPLEX Qty: 3 0RF Dose Instruction: INJECT 1 PEN WEEKLY Rx Instructions: INJECT 1 PEN WEEKLY Follow-up/Referrals: Jr Broderick DO [Primary Care Provider] - 3 Days Time of Disposition: 22:10
--- OUTSIDE RECORDS SUMMARY | 2025-02-01 22:14 | XMS_ITS | Referral Summary ---
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
--- OUTSIDE RECORDS SUMMARY | 2025-02-01 22:14 | XMS_ITS | Clinical Summary ---
Author Organization [facility] [employer] Address [address] [place] [address] Care Team Providers Care Wet Process Assistant Head Miller Name Role Phone Unavailable Primary Care Provider Unavailabl e Source Comments [facility] [employer],non-owned Affiliates and Associated Physician Practices is amultiple site organization consisting of ambulatory clinics and hospital sitesin [place], [place], [place] and [place]. This disclosure is being madepursuant to the Care Everywhere program and may not contain all information available regarding this patient. Last updated 18.Disability Care Givers Allergies No known active allergies Medications * [...] Ratio 1.9 <5.0 03/22/2018 6:59 AM CDT [facility] Blood BLOOD SPECIMEN / Unknown Venipuncture / Unknown 03/22/2018 6:29 AM CDT 03/22/2018 6:34 AM CDT Iván Kate MD LAB - CHEMISTRY ORDERABLES F inal Result [facility] [address] [place] [address] from Last 3 Months or Most Recently Relevant to Health Maintenance Insurance ANTH ANTH Advance Directives * Full Code (Latest Code Status on File) Date Activated Date Inactivated Comments 03/21/2018 12:41 PM 03/25/2018 4:31 PM
--- OUTSIDE RECORDS SUMMARY | 2025-02-01 22:14 | XMS_ITS | Clinical Summary ---
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 Care Teams Press Worker Helper Relationship Specialty [place] [id number] [address] [phone] PCP - General 12/22/10
--- OUTSIDE RECORDS SUMMARY | 2025-02-01 22:14 | XMS_ITS | Encounter Summary ---
Author Organization [facility] Address [address] [place] [address] Care Team Providers Care Forest Worker Name Role Phone Dora Barber MD Primary Care Provider Reason for Visit * Reason Comments Blurred Vision Patient here for c/o blurry vision that started 2 days ago, pressure behind eyes. 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
[2025-02-04 10:35] LABS: Estimated CRCL calculation 97 ml/min; Estimated Glomerular Filt Rate > 60
== END 2025-02-01 22:23 | disposition home or self-care (01) ==
PROVIDERS: Emergency Provider Emergency Medicine; PCP Family Medicine
DX: H53.8 Other visual disturbances (principal); I10 Essential (primary) hypertension; E11.9 Type 2 diabetes mellitus without complications; F32.A Depression, unspecified; F41.1 Generalized anxiety disorder; Z87.891 Personal history of nicotine dependence; Z79.899 Other long term (current) drug therapy; Z79.85 Long-term (current) use of injectable non-insulin antidiabetic drugs
CPT/HCPCS: 36415; 70450; 70481; 80053; 82565; 83735; 85025; 85652; 86140; 99284; Q9967

== ENCOUNTER 2025-02-12 16:03 | Outpatient (CLI) | payer BC, SELFPAY ==
[2025-02-12 16:20] LABS: Basophils Absolute Auto 0.01 K/mm3 (0.00-0.10); Basophils Percent Auto 0.2 % (0.0-1.0); Eosinophils Absolute Auto 0.36 K/mm3 (0.02-0.50); Eosinophils Percent Auto 5.9 % (1.0-6.0); Hematocrit 40.3 % (35.0-49.0); Hemoglobin 13.4 g/dL (12.0-15.0); Immature Granulocyte Absolute 0.02 K/mm3 (0.00-0.00); Immature Granulocyte Percent A 0.3 % (0.0-0.0); Lymphocytes Absolute Auto 1.27 K/mm3 (1.10-4.50); Mean Corpuscular HGB Conc 33.3 g/dL (32-36); Mean Corpuscular Hemoglobin 30.4 pg (27.0-31.0); Mean Corpuscular Volume 91.4 fL (78.0-102.0); Mean Platelet Volume 10.1 fl (9.2-11.8); Monocytes Absolute Auto 0.39 K/mm3 (0.10-0.90); Monocytes Percent Auto 6.4 % (2.0-11.0); Neutrophils Absolute Auto 4.01 K/mm3 (1.70-7.20); Neutrophils Percent Auto 66.2 % (50.0-70.0); Platelet Count Result 232 K/mm3 (150-420); Red Blood Count 4.41 M/mm3 (4.20-5.40); Red Cell Distribution Width 11.9 % (11.6-14.4); White Blood Count 6.1 K/mm3 (4.8-10.8)
[2025-02-12 16:23] LABS: Add Urine Microscopic? YES; Appearance Urine Clear (Clear); Bilirubin Urine Negative (Negative); Blood Urine Negative (Negative); Color Urine Light Yellow (Yellow); Glucose Urine UA Negative (Negative); Ketones Urine Negative (Negative); Leukocyte Esterase Ur Trace (Negative); Nitrate Urine Negative (Negative); Protein Urine Negative (Negative)
[2025-02-12 16:29] LABS: Bacteria Urine Trace /hpf; RBC Urine 0-2 /hpf (0-2); Squamous Epithelial Cell Urine Moderate /hpf (Few); WBC Urine 0-5 /hpf (0-3)
[2025-02-12 16:36] LABS: Hemoglobin A1C 7.6 % (<5.7)
[2025-02-12 16:56] LABS: HCO3 VBG 27.1 mEq/l (24.0-30.0); PCO2 VBG 46.5 mmHg (42.0-48.0); PO2 VBG 44.3 mmHg (35.0-45.0); pH VBG 7.38 (7.33-7.43)
[2025-02-12 16:57] LABS: Device ROOM AIR
[2025-02-12 17:15] LABS: Alanine Aminotransferase 50 U/L (14-59); Albumin Level 3.8 g/dL (3.4-5.0); Alkaline Phosphatase 93 U/L (46-116); Anion Gap 7 mmol/L (4-12); Aspartate Amino Transferase 21 U/L (15-37); Bilirubin,Total 0.5 mg/dL (0.00-1.00); Blood Urea Nitrogen 3 mg/dL (7-18); Calcium 9.4 mg/dL (8.5-10.1); Carbon Dioxide 29 mmol/L (21-32); Chloride 101 mmol/L (98-108); Estimated Glomerular Filt Rate > 60; Glucose 124 mg/dL (70-99); Osmolality Calculated 281 mOsm/kg (285-295); Potassium 4.1 mmol/L (3.5-5.1); Sodium 137 mmol/L (136-145); Total Protein 6.5 g/dL (6.4-8.2)
[2025-02-12 17:37] LABS: Creatinine Urine 61.83 mg/dL (40-278); Microalbumin Urine Random < 13.0 mg/L
[2025-02-15 03:03] LABS: Cholesterol 223 mg/dL (0-200); HDL Direct 85 mg/dL (40-60); LDL Cholesterol Calculated 123 mg/dL (<130); Triglycerides 74 mg/dL (0-150)
== END 2025-02-12 16:04 | disposition home or self-care (01) ==
LOC: CHSLAB 16:04
PROVIDERS: PCP Nurse Practitioner Family; Visit Provider Nurse Practitioner Family
DX: E11.9 Type 2 diabetes mellitus without complications (principal); D72.829 Elevated white blood cell count, unspecified; E87.8 Other disorders of electrolyte and fluid balance, not elsewhere classified; R74.8 Abnormal levels of other serum enzymes
CPT/HCPCS: 36415; 80053; 80061; 81001; 82043; 82803; 83036; 85025